=== PATIENT | male | born 1960 | race Caucasian/White ===

== ENCOUNTER 2018-10-20 09:50 | Outpatient (CLI) | payer BC ==
[2018-10-20 10:40] LABS: TOTAL HEMOGLOBIN 15.7 G/dl (14.0-18.0)
== END 2018-10-20 23:59 | disposition home or self-care (01) ==
LOC: RT 09:50
PROVIDERS: ATTEND Internal Medicine Pulmonary Disease
DX: J44.9 Chronic obstructive pulmonary disease, unspecified (principal); F17.210 Nicotine dependence, cigarettes, uncomplicated
CPT/HCPCS: 85018; 94010; 94727; 94729

== ENCOUNTER 2019-06-17 06:12 | Day surgery (SDC) | payer BC ==
[2019-06-17] VITALS (19 sets, daily range): BP systolic 107–136; BP diastolic 67–87
[~2019-06-17] VITALS: Ht 182.9 cm; Wt 84.7 kg
[2019-06-17] MEDS ORDERED: morphine 10mg/ml inj. IM ONE (06:37)
[2019-06-17] MEDS ORDERED: LIDOcaine 4% (40 mg/ml) topical solution 50ml MM ONE (06:40)
[2019-06-17] MEDS ORDERED: phenylephrine 1% (X-tra strg) 15ml nasal spray NS ONE (06:40)
[2019-06-17] MEDS ORDERED: LIDOcaine 4% (40 mg/ml) topical solution 50ml INH ONE (06:40)
[2019-06-17] MEDS ORDERED: CYAN-51 PO (06:47)
[2019-06-17] MEDS ORDERED: PRAS1TAB4 PO (06:47)
[2019-06-17] MEDS ORDERED: GINK60TA2 PO (06:47)
[2019-06-17] MEDS ORDERED: CHOL2000 PO (06:47)
[2019-06-17] MEDS ORDERED: MULT-269 PO (06:47)
[2019-06-17] MEDS ORDERED: [UNRECOGNIZED DRUG - OTHER] PO (06:47)
[2019-06-17] MEDS ORDERED: RED1000P PO (06:47)
[2019-06-17] MEDS ORDERED: lidocaine 2% viscous 15 ML cup ***bronch room only MM ONE (06:56)
[2019-06-17] MEDS ORDERED: phenylephrine 1% Nasal spray (extra-strength) 15 ML bottle **bronch room NS ONE (06:56)
[2019-06-17] MEDS ORDERED: LIDOCAINE 4% (40MG/ML) topical solution 50ml **BRONCH ONLY ONE (06:56)
[2019-06-17 07:19] LABS: BASOPHILS # (AUTO) 0.1 X10'3 (0-0.2); EOSINOPHILS # (AUTO) 0.1 X10'3 (0-0.9); EOSINOPHILS % (AUTO) 2.3 % (0-6); HEMATOCRIT 43.5 % (42.0-52.0); HEMOGLOBIN 14.9 g/dl (14.0-17.9); LYMPHOCYTES # (AUTO) 1.5 X10'3 (1.1-4.8); LYMPHOCYTES % (AUTO) 25.1 % (21-51); MEAN CORPUSCULAR HEMOGLOBIN 31.4 PG (27.0-31.0); MEAN CORPUSCULAR HGB CONC 34.3 g/dL (33.0-36.5); MEAN CORPUSCULAR VOLUME 91.4 FL (78-98); MEAN PLATELET VOLUME 7.2 FL (7.4-10.4); MONOCYTES # (AUTO) 0.5 X10'3 (0-0.9); MONOCYTES % (AUTO) 8.3 % (2-12); NEUTROPHILS # (AUTO) 3.7 X10'3 (1.8-7.7); NEUTROPHILS % (AUTO) 63.3 % (42-75); PLATELET COUNT 349 X10'3 (140-440); RED BLOOD COUNT 4.76 X10'6 (4.70-6.10); RED CELL DISTRIBUTION WIDTH 13.1 % (11.5-14.5); WHITE BLOOD COUNT 5.9 X10'3 (4.5-11.0)
[2019-06-17] MEDS ORDERED: midazolam 2 mg/2 ml injection ONE (07:34)
[2019-06-17] MEDS ORDERED: midazolam 2 mg/2 ml injection IV ONE (07:35)
== END 2019-06-17 10:35 | disposition home or self-care (01) ==
LOC: SSTAY O 06:12
PROVIDERS: ATTEND Internal Medicine Pulmonary Disease
DX: D49.1 Neoplasm of unspecified behavior of respiratory system (principal); R91.8 Other nonspecific abnormal finding of lung field; Z87.891 Personal history of nicotine dependence; E78.5 Hyperlipidemia, unspecified; F32.9 Major depressive disorder, single episode, unspecified; Z88.0 Allergy status to penicillin
CPT/HCPCS: 31628; 36415; 76499; 82378; 85025; 85651; 94640; 94760; J2250; J2270; 31622

== ENCOUNTER 2019-07-14 06:09 | Day surgery (SDC) | payer BC ==
[~2019-07-14] VITALS: Ht 182.9 cm; Wt 85.8 kg
[2019-07-14] VITALS (17 sets, daily range): BP systolic 102–151; BP diastolic 57–79
[~2019-07-14 06:09] MED LIST: CHOL2000 PO; CYAN-51 PO; GINK60TA2 PO; MULT-269 PO; PRAS1TAB4 PO; RED1000P PO; [UNRECOGNIZED DRUG - OTHER] PO
[2019-07-14] MEDS ORDERED: normal saline 1000ml 1,000 ML IV PRN (06:45)
[2019-07-14 08:00] LABS: BASOPHILS % (AUTO) 0.7 % (0-1); EOSINOPHILS # (AUTO) 0.2 X10'3 (0-0.9); EOSINOPHILS % (AUTO) 2.8 % (0-6); HEMATOCRIT 43.7 % (42.0-52.0); HEMOGLOBIN 14.8 g/dl (14.0-17.9); LYMPHOCYTES # (AUTO) 1.3 X10'3 (1.1-4.8); LYMPHOCYTES % (AUTO) 21.7 % (21-51); MEAN CORPUSCULAR HEMOGLOBIN 31.1 PG (27.0-31.0); MEAN CORPUSCULAR VOLUME 91.4 FL (78-98); MEAN PLATELET VOLUME 7.7 FL (7.4-10.4); MONOCYTES # (AUTO) 0.5 X10'3 (0-0.9); MONOCYTES % (AUTO) 8.8 % (2-12); NEUTROPHILS # (AUTO) 3.8 X10'3 (1.8-7.7); PLATELET COUNT 243 X10'3 (140-440); RED BLOOD COUNT 4.77 X10'6 (4.70-6.10); RED CELL DISTRIBUTION WIDTH 13.2 % (11.5-14.5); WHITE BLOOD COUNT 5.8 X10'3 (4.5-11.0)
[2019-07-14 08:09] LABS: ANION GAP 9 (8-16); BLOOD UREA NITROGEN 22 MG/DL (7-18); BUN/CREATININE RATIO 20.4 (5.4-32.0); CALCIUM 8.8 MG/DL (8.5-10.1); CHLORIDE 109 MMOL/L (99-107); CREATININE 1.08 MG/DL (0.60-1.10); GLUCOSE 92 MG/DL (70-104); POTASSIUM 4.5 MMOL/L (3.5-5.1); SODIUM 143 MMOL/L (135-145); TOTAL CARBON DIOXIDE 25.4 MMOL/L (24-32); eGFR 70 ML/MIN
[2019-07-14] MEDS ORDERED: LIDOcaine 1% (10mg/ml) 2ml vial SQ ONE (08:10)
[2019-07-14] MEDS ORDERED: midazolam 2 mg/2 ml injection IV PRN (08:10)
[2019-07-14] MEDS ORDERED: fentaNYL/PF 50MCG/1 ML 2ML syringe IV PRN (08:10)
[2019-07-14] MEDS ORDERED: fentaNYL/PF 50MCG/1 ML 2ML syringe ONE (08:11)
[2019-07-14] MEDS ORDERED: midazolam 2 mg/2 ml injection ONE (08:11)
[2019-07-14] MEDS ORDERED: HYDROcodone/acetaminophen 5mg/325mg tablet PO PRN (09:00)
== END 2019-07-14 11:40 | disposition home or self-care (01) ==
LOC: SSTAY O 06:09
PROVIDERS: ATTEND Radiology Diagnostic Radiology
DX: C34.32 Malignant neoplasm of lower lobe, left bronchus or lung (principal); Z79.01 Long term (current) use of anticoagulants
CPT/HCPCS: 32405; 36415; 71045; 77012; 80048; 85025; 85610; 99152; 99153; C2613; J2250; J3010; J7030

== ENCOUNTER 2021-09-21 04:49 | Inpatient (IN) | payer BC ==
[~2021-09-21] VITALS: Ht 180.3 cm; Wt 78.3 kg
[2021-09-21] VITALS (14 sets, daily range): BP systolic 78–119; BP diastolic 36–65
[~2021-09-21 04:49] MED LIST changes: -CHOL2000 PO; -CYAN-51 PO; -GINK60TA2 PO; -MULT-269 PO; -PRAS1TAB4 PO; -RED1000P PO
[2021-09-21 05:28] LABS: ABG BASE EXCESS -5.3 mmol/L (-2.0-2.0); ABG HCO3 18.7 mmol/L (22.0-26.0); ABG OXYGEN SATURATION 94.1 % (94-97); ABG PCO2 (T) 31.6 mmHg (35.0-48.0); ABG PO2 (T) 74.2 mmHg (75.0-100.0); FCOHb 0.3 % (0.0-3.9); FLOW 4 L/min; FMetHb 0.1 % (0.0-1.5); FO2Hb 93.7 % (94-97); TOTAL HEMOGLOBIN 11.3 G/dl (14.0-18.0)
--- NOTE | 2021-09-21 05:30 | NUR ---
Pt presents to the ED for a possible OD of lithium. Pt appears to be sleeping at the moment, able to maintain his own airway, sating at 100% on 6L of via NC. Will prepare for intubation, central line, and an art line.
--- NOTE | 2021-09-21 05:45 | NUR ---
Dr. Dover at bedside to prepare for intubation.
--- NOTE | 2021-09-21 05:49 | NUR ---
RT is at bedside
[2021-09-21] MEDS ORDERED: MIDAZolam inj 50 MG in normal saline 50ml IV soln 40 ML IV SCH (06:45)
[2021-09-21] MEDS ORDERED: fentaNYL/PF 50MCG/1 ML 2ML syringe IV PRN (06:45)
[2021-09-21] MEDS ORDERED: normal saline 1000ml 1,000 ML IV ONE (07:10)
[2021-09-21] MEDS: FENTANYL-0.9 % NACL/PF 100 ML IV SCH ×2 (07:15→20:50)
[2021-09-21] MEDS: midazolam 100mg in NS 100ml 100 ML IV SCH ×2 (07:19→20:51)
[2021-09-21 07:32] LABS: BASOPHILS % (AUTO) 0.2 % (0-1); EOSINOPHILS % (AUTO) 0.2 % (0-6); HEMOGLOBIN 11.6 g/dl (14.0-17.9); LYMPHOCYTES # (AUTO) 0.7 X10'3 (1.1-4.8); LYMPHOCYTES % (AUTO) 7.6 % (21-51); MEAN CORPUSCULAR HEMOGLOBIN 33.3 PG (27.0-31.0); MEAN CORPUSCULAR HGB CONC 35.1 g/dL (33.0-36.5); MEAN CORPUSCULAR VOLUME 94.7 FL (78-98); MEAN PLATELET VOLUME 6.7 FL (7.4-10.4); MONOCYTES # (AUTO) 1.1 X10'3 (0-0.9); MONOCYTES % (AUTO) 11.4 % (2-12); NEUTROPHILS # (AUTO) 7.6 X10'3 (1.8-7.7); NEUTROPHILS % (AUTO) 80.6 % (42-75); PLATELET COUNT 170 X10'3 (140-440); RED BLOOD COUNT 3.48 X10'6 (4.70-6.10); RED CELL DISTRIBUTION WIDTH 13.1 % (11.5-14.5); WHITE BLOOD COUNT 9.4 X10'3 (4.5-11.0)
[2021-09-21 07:48] LABS: ALANINE AMINOTRANSFERASE 26 U/L (12-78); ALBUMIN 2.6 G/DL (3.4-5.0); ALBUMIN/GLOBULIN RATIO 0.9 (1.1-1.5); ALKALINE PHOSPHATASE 54 IU/L (46-116); ANION GAP 8 (8-16); ASPARTATE AMINO TRANSFERASE 47 U/L (10-37); BILIRUBIN,TOTAL 0.5 MG/DL (0.1-1.0); BLOOD UREA NITROGEN 16 MG/DL (7-18); BUN/CREATININE RATIO 14.2 (5.4-32.0); CALCIUM 7.3 MG/DL (8.5-10.1); CHLORIDE 114 MMOL/L (99-107); CREATININE 1.13 MG/DL (0.60-1.10); GLUCOSE 122 MG/DL (70-104); POTASSIUM 4.2 MMOL/L (3.5-5.1); SODIUM 144 MMOL/L (135-145); TOTAL CARBON DIOXIDE 22.2 MMOL/L (24-32); TOTAL PROTEIN 5.5 G/DL (6.4-8.2); eGFR 66 ML/MIN
[2021-09-21 07:51] LABS: ACETAMINOPHEN < 2.0 UG/ML (10-30); ETHANOL < 0.010 GM/DL (0.0-0.010); TROPONIN I < 0.04 NG/ML (0.0-0.05)
[2021-09-21 08:31] LABS: ABG BASE EXCESS -3.2 mmol/L (-2.0-2.0); ABG HCO3 20.5 mmol/L (22.0-26.0); ABG OXYGEN SATURATION 97.2 % (94-97); ABG PCO2 (T) 33.9 mmHg (35.0-48.0); ABG PO2 (T) 111.1 mmHg (75.0-100.0); FCOHb 0.3 % (0.0-3.9); FMetHb 0.3 % (0.0-1.5); FO2Hb 96.6 % (94-97); PATIENT TEMPERATURE 38.1; RESPIRATORY RATE 16 b/min; TIDAL VOLUME 450 mL; TOTAL HEMOGLOBIN 11.9 G/dl (14.0-18.0)
[2021-09-21 09:26] LABS: CLARITY,URINE CLEAR (Clear); COLOR,URINE YELLOW (Yellow); GLUCOSE, URINE NEGATIVE (Neg); KETONES,URINE NEGATIVE (Neg); LEUKOCYTE ESTERASE ,URINE NEGATIVE (Neg); NITRITES, URINE NEGATIVE (Neg); OCCULT BLOOD,URINE LARGE (Neg); PROTEIN,URINE NEGATIVE (Neg); UA COLLECTION TYPE NON-SPECIFIED; UROBILINOGEN,URINE 0.2 E.U/dL (0.2-1.0)
[2021-09-21 09:30] LABS: BACTERIA,URINE NONE SEEN /HPF (Neg); MUCUS STRANDS NONE SEEN /LPF (Neg); RBC,URINE 0-2 /HPF (0-2); SQUAMOUS EPITHELIAL CELL,UR NONE SEEN /LPF (FEW); URINE AMPHETAMINE SCREEN NEGATIVE (Neg); URINE BARBITUATE SCREEN NEGATIVE (Neg); URINE BENZODIAZEPINES SCREEN POSITIVE (Neg); URINE CANNABINOID SCREEN NEGATIVE (Neg); URINE COCAINE SCREEN NEGATIVE (Neg); URINE METHADONE SCREEN NEGATIVE (Neg); URINE OPIATE SCREEN NEGATIVE (Neg); URINE PHENCYCLIDINE SCREEN NEGATIVE (Neg); WBC,URINE 0-4 /HPF (0-4)
[2021-09-21 11:23] LABS: LACTIC SEPSIS 0.9 MMOL/L (0.4-2.0)
[2021-09-21] MEDS ORDERED: magnesium 2GM in 50ml NS 50 ML IV PRN (11:55)
[2021-09-21] MEDS ORDERED: magnesium Cl slow-release 64mg tablet PO PRN (11:55)
[2021-09-21] MEDS ORDERED: magnesium hydroxide 30ml (MOM) UD suspension PO PRN (11:55)
[2021-09-21] MEDS ORDERED: Neutra Phos packet PO PRN (11:55)
[2021-09-21] MEDS ORDERED: potassium Cl 20 mEq SR tablet PO PRN ×2 (11:55)
[2021-09-21] MEDS: K, MAG and/or Phos replacement - Verify level? MC SCH (11:55)
[2021-09-21] MEDS ORDERED: potassium phosphate inj 30 MMOL in dextrose 5%-water 250 ML IV PRN (11:55)
[2021-09-21] MEDS ORDERED: potassium phosphate inj 15 MMOL in dextrose 5%-water 250 ML IV PRN (11:55)
[2021-09-21] MEDS ORDERED: magnesium 4gm in 100ml NS 100 ML IV PRN (11:55)
--- NOTE | 2021-09-21 12:28 | NUR ---
radiology manager at bedside.family at bedside.
--- NOTE | 2021-09-21 12:28 | NUR ---
TOOK OVER PATIENT ASSIGNMENT.
--- NOTE | 2021-09-21 12:28 | NUR ---
pt on versed 1mg and fentanyl 25mg/hr.
--- NOTE | 2021-09-21 13:05 | NUR ---
REPORT CALLED TO DAI TRAFFIC SIGNAL REPAIRER.
[2021-09-21] MEDS ORDERED: NORepinephrine 8mg/ 250ml NS 250 ML IV ONE (13:32)
[2021-09-21] MEDS: NORepinephrine 8mg/ 250ml NS 250 ML IV SCH (14:15)
[2021-09-21] MEDS ORDERED: BREX1TAB PO (14:34)
[2021-09-21] MEDS ORDERED: FLUO40CA PO (14:34)
[2021-09-21] MEDS ORDERED: TRAZ-251 PO (14:34)
[2021-09-21] MEDS ORDERED: LITH150C8 PO (14:34)
[2021-09-21] MEDS: normal saline 1000ml 1,000 ML IV SCH (14:49)
[2021-09-21] MEDS: albumin (Human) 5% 250ml 250 ML IV SCH ×4 (14:50→17:49)
[2021-09-21] MEDS: vancomycin/NS 1 GM ADD-VANTAGE 250 ML IV SCH (15:09)
[2021-09-21] MEDS: piperacillin/tazo 3.375gm/50ml 50 ML IV SCH ×2 (15:09→20:23)
[2021-09-21] MEDS: heparin, porcine 5000 units/ml vial SQ SCH (16:44)
[2021-09-21 16:51] LABS: ABG BASE EXCESS -4.2 mmol/L (-2.0-2.0); ABG HCO3 19.4 mmol/L (22.0-26.0); ABG OXYGEN SATURATION 94.5 % (94-97); ABG PCO2 (T) 31.8 mmHg (35.0-48.0); ABG PO2 (T) 77.2 mmHg (75.0-100.0); FCOHb 0.2 % (0.0-3.9); FMetHb 0.3 % (0.0-1.5); PATIENT TEMPERATURE 38.1; PEEP 5 cm H2O; RESPIRATORY RATE 16 b/min; TIDAL VOLUME 450 mL; TOTAL HEMOGLOBIN 10.3 G/dl (14.0-18.0)
[2021-09-21] MEDS: acetaminophen 325mg tablet PO PRN (17:49)
[2021-09-21] MEDS: docusate sod 100mg capsule PO SCH (20:00)
[2021-09-22] VITALS (22 sets, daily range): BP systolic 100–128; BP diastolic 47–75
[2021-09-22] MEDS: heparin, porcine 5000 units/ml vial SQ SCH ×3 (00:31→16:03)
[2021-09-22] MEDS: vancomycin/NS 1 GM ADD-VANTAGE 250 ML IV SCH ×2 (00:32→13:00)
[2021-09-22] MEDS: normal saline 1000ml 1,000 ML IV SCH ×2 (00:32→14:35)
[2021-09-22] MEDS: acetaminophen 325mg tablet PO PRN ×2 (01:40→20:57)
[2021-09-22] MEDS: midazolam 100mg in NS 100ml 100 ML IV SCH ×2 (01:44→17:58)
[2021-09-22] MEDS: FENTANYL-0.9 % NACL/PF 100 ML IV SCH ×2 (01:44→17:16)
[2021-09-22 02:54] LABS: BASOPHILS % (AUTO) 0.2 % (0-1); EOSINOPHILS # (AUTO) 0.1 X10'3 (0-0.9); EOSINOPHILS % (AUTO) 1.4 % (0-6); HEMATOCRIT 29.5 % (42.0-52.0); HEMOGLOBIN 10.2 g/dl (14.0-17.9); LYMPHOCYTES # (AUTO) 0.7 X10'3 (1.1-4.8); LYMPHOCYTES % (AUTO) 7.8 % (21-51); MEAN CORPUSCULAR HEMOGLOBIN 32.9 PG (27.0-31.0); MEAN CORPUSCULAR HGB CONC 34.7 g/dL (33.0-36.5); MEAN PLATELET VOLUME 6.9 FL (7.4-10.4); MONOCYTES # (AUTO) 0.9 X10'3 (0-0.9); MONOCYTES % (AUTO) 10.7 % (2-12); NEUTROPHILS % (AUTO) 79.9 % (42-75); PLATELET COUNT 142 X10'3 (140-440); RED BLOOD COUNT 3.11 X10'6 (4.70-6.10); RED CELL DISTRIBUTION WIDTH 13.1 % (11.5-14.5); WHITE BLOOD COUNT 8.8 X10'3 (4.5-11.0)
[2021-09-22 03:08] LABS: PARTIAL THROMBOPLASTIN TIME 36 SECONDS (22-32)
[2021-09-22 03:16] LABS: ALANINE AMINOTRANSFERASE 30 U/L (12-78); ALBUMIN 2.6 G/DL (3.4-5.0); ALBUMIN/GLOBULIN RATIO 0.9 (1.1-1.5); ALKALINE PHOSPHATASE 45 IU/L (46-116); ANION GAP 8 (8-16); ASPARTATE AMINO TRANSFERASE 89 U/L (10-37); BLOOD UREA NITROGEN 14 MG/DL (7-18); BUN/CREATININE RATIO 12.5 (5.4-32.0); CALCIUM 7.2 MG/DL (8.5-10.1); CHLORIDE 112 MMOL/L (99-107); CREATININE 1.12 MG/DL (0.60-1.10); GLUCOSE 104 MG/DL (70-104); MAGNESIUM 1.8 MG/DL (1.5-2.4); PHOSPHORUS 1.9 MG/DL (2.3-4.5); POTASSIUM 3.6 MMOL/L (3.5-5.1); SODIUM 144 MMOL/L (135-145); TOTAL CARBON DIOXIDE 23.7 MMOL/L (24-32); TOTAL PROTEIN 5.5 G/DL (6.4-8.2); eGFR 67 ML/MIN
[2021-09-22 03:22] LABS: ABG BASE EXCESS -3.8 mmol/L (-2.0-2.0); ABG HCO3 22.4 mmol/L (22.0-26.0); ABG OXYGEN SATURATION 87.5 % (94-97); ABG PCO2 (T) 48.2 mmHg (35.0-48.0); ABG PO2 (T) 63.5 mmHg (75.0-100.0); FCOHb 0.3 % (0.0-3.9); FMetHb 0.2 % (0.0-1.5); FO2Hb 87.1 % (94-97); PATIENT TEMPERATURE 38.5; PEEP 5 cm H2O; RESPIRATORY RATE 12 b/min; TIDAL VOLUME 450 mL; TOTAL HEMOGLOBIN 10.7 G/dl (14.0-18.0)
[2021-09-22] MEDS: piperacillin/tazo 3.375gm/50ml 50 ML IV SCH ×3 (03:52→20:58)
--- NOTE | 2021-09-22 04:00 | NUR ---
Dr. Ayon, rounded on patient, changes discussed with MD: High fever, oxygen desaturation. MD order for vent settings change, settings changed by RT as order. no any other order receive
[2021-09-22] MEDS: NORepinephrine 8mg/ 250ml NS 250 ML IV SCH ×2 (04:36→21:29)
--- NOTE | 2021-09-22 06:02 | NUR ---
TYLENOL TABLET GIVEN FOR HIGH FEVER, AND ICE PACKS APPLIED TO SIDE TO COOL TEMP DOWN. REPORT GIVEN TO
--- NOTE | 2021-09-22 06:31 | NUR ---
REPORT GIVEN TO DOT/JUAN
[2021-09-22 07:18] LABS: ABG BASE EXCESS -4.2 mmol/L (-2.0-2.0); ABG HCO3 21.6 mmol/L (22.0-26.0); ABG OXYGEN SATURATION 93.5 % (94-97); ABG PCO2 (T) 45.5 mmHg (35.0-48.0); ABG PO2 (T) 77.5 mmHg (75.0-100.0); FCOHb 0.3 % (0.0-3.9); FMetHb 0.4 % (0.0-1.5); FO2Hb 92.8 % (94-97); PATIENT TEMPERATURE 38.6; PEEP 8 cm H2O; RESPIRATORY RATE 14 b/min; TIDAL VOLUME 450 mL; TOTAL HEMOGLOBIN 11.1 G/dl (14.0-18.0)
[2021-09-22] MEDS: K, MAG and/or Phos replacement - Verify level? MC SCH (08:00)
[2021-09-22] MEDS: pantoprazole 40 MG vial IV SCH (08:24)
[2021-09-22] MEDS: docusate sod 100mg capsule PO SCH ×2 (08:25→20:57)
--- NOTE | 2021-09-22 09:09 | NUR ---
Initial: Pt admitted to previous facility for OD, became unstable during transfer, now intubated and sedated per MD note. Pt may benefit from TF if prolonged intubation, see recs below. LBM unknown, receiving routine colace. No open wounds or edema noted. Will continue to monitor closely. Recs: 1) IF prolonged intubation, Continuous TF using Vital AF at 75ml/hr goal to provide 1800ml volume, 2160kcals, 135g Protein, 1458ml free water 2) IF TF, Additional water flush 200ml Q4H 3) IF TF, PALB Q /; daily wts 4) Routine bowel care 5) Upon extubation, advance to Regular diet as medically indicated Addendum: 09/22/21 at [address] Amended: Links added.
[2021-09-22] MEDS: ipratropium/albuterol 3ml nebule NEB PRN (11:28)
[2021-09-22] MEDS ORDERED: albumin (Human) 5% 250ml 250 ML IV ONE ×4 (14:00)
--- NOTE | 2021-09-22 18:30 | NUR ---
I have recd report and assumed care of pt, pt resting in bed spouse at bedside, questions answered, plan of care reviewed
--- NOTE | 2021-09-22 19:20 | NUR ---
Assessment complete, titrating Levophed to keep MAP greater then 60.
[2021-09-23] VITALS (24 sets, daily range): BP systolic 92–112; BP diastolic 48–88
--- NOTE | 2021-09-23 00:05 | NUR ---
poison control called updated on pts condition labs and vs reviewed.
[2021-09-23] MEDS ORDERED: VANCOMYCIN LEVEL IV ONE ×2 (00:30→12:30)
[2021-09-23] MEDS: heparin, porcine 5000 units/ml vial SQ SCH ×3 (01:02→19:40)
[2021-09-23] MEDS: vancomycin/NS 1 GM ADD-VANTAGE 250 ML IV SCH ×2 (01:02→13:47)
[2021-09-23] MEDS: FENTANYL-0.9 % NACL/PF 100 ML IV SCH (03:13)
[2021-09-23 03:17] LABS: BASOPHILS % (AUTO) 0.2 % (0-1); EOSINOPHILS # (AUTO) 0.1 X10'3 (0-0.9); EOSINOPHILS % (AUTO) 1.4 % (0-6); HEMATOCRIT 25.9 % (42.0-52.0); HEMOGLOBIN 9.1 g/dl (14.0-17.9); LYMPHOCYTES # (AUTO) 0.5 X10'3 (1.1-4.8); LYMPHOCYTES % (AUTO) 7.2 % (21-51); MEAN CORPUSCULAR HEMOGLOBIN 33.2 PG (27.0-31.0); MEAN CORPUSCULAR HGB CONC 35.3 g/dL (33.0-36.5); MEAN CORPUSCULAR VOLUME 94.2 FL (78-98); MONOCYTES # (AUTO) 0.7 X10'3 (0-0.9); MONOCYTES % (AUTO) 9.7 % (2-12); NEUTROPHILS % (AUTO) 81.5 % (42-75); PLATELET COUNT 115 X10'3 (140-440); RED BLOOD COUNT 2.75 X10'6 (4.70-6.10); RED CELL DISTRIBUTION WIDTH 12.7 % (11.5-14.5); WHITE BLOOD COUNT 7.4 X10'3 (4.5-11.0)
[2021-09-23 03:34] LABS: ALANINE AMINOTRANSFERASE 30 U/L (12-78); ALBUMIN 2.8 G/DL (3.4-5.0); ALKALINE PHOSPHATASE 49 IU/L (46-116); ANION GAP 11 (8-16); ASPARTATE AMINO TRANSFERASE 71 U/L (10-37); BLOOD UREA NITROGEN 16 MG/DL (7-18); BUN/CREATININE RATIO 14.5 (5.4-32.0); CALCIUM 7.5 MG/DL (8.5-10.1); CHLORIDE 111 MMOL/L (99-107); GLUCOSE 86 MG/DL (70-104); MAGNESIUM 1.8 MG/DL (1.5-2.4); PHOSPHORUS 2.9 MG/DL (2.3-4.5); POTASSIUM 3.9 MMOL/L (3.5-5.1); SODIUM 144 MMOL/L (135-145); TOTAL CARBON DIOXIDE 22.4 MMOL/L (24-32); TOTAL PROTEIN 5.6 G/DL (6.4-8.2); eGFR 68 ML/MIN
[2021-09-23 03:35] LABS: PARTIAL THROMBOPLASTIN TIME 38 SECONDS (22-32)
[2021-09-23 03:36] LABS: VANCOMYCIN,TROUGH 27.8 UG/ML (6.0-14.0)
[2021-09-23] MEDS: acetaminophen 325mg tablet PO PRN (04:00)
[2021-09-23] MEDS: piperacillin/tazo 3.375gm/50ml 50 ML IV SCH ×3 (04:00→19:39)
[2021-09-23] MEDS: normal saline 1000ml 1,000 ML IV SCH ×2 (04:00→17:15)
[2021-09-23 04:21] LABS: ABG BASE EXCESS -4.2 mmol/L (-2.0-2.0); ABG HCO3 21.3 mmol/L (22.0-26.0); ABG OXYGEN SATURATION 94.6 % (94-97); ABG PO2 (T) 82.4 mmHg (75.0-100.0); FCOHb 0.3 % (0.0-3.9); FMetHb 0.3 % (0.0-1.5); PATIENT TEMPERATURE 38.6; PEEP 8 cm H2O; RESPIRATORY RATE 14 b/min; TIDAL VOLUME 450 mL; TOTAL HEMOGLOBIN 9.5 G/dl (14.0-18.0)
[2021-09-23] MEDS ORDERED: ibuprofen tablet 400 MG TABLET PO PRN (05:00)
[2021-09-23 05:39] LABS: CREATINE KINASE 2031 U/L (39-308)
--- NOTE | 2021-09-23 06:24 | NUR ---
report given to rec rn plan of care reviewed
[2021-09-23] MEDS ORDERED: docusate sodium 100mg/10ml UD cup PO SCH (07:29)
[2021-09-23] MEDS: K, MAG and/or Phos replacement - Verify level? MC SCH (08:00)
[2021-09-23] MEDS: pantoprazole 40 MG vial IV SCH (08:09)
--- NOTE | 2021-09-23 11:14 | NUR ---
TF Consult: See recs below. Initial: Pt admitted to previous facility for OD, became unstable during transfer, now intubated and sedated per MD note. Pt may benefit from TF if prolonged intubation, see recs below. LBM unknown, receiving routine colace. No open wounds or edema noted. Will continue to monitor closely. Recs: 1) Continuous TF using Vital AF at 75ml/hr goal to provide 1800ml volume, 2160kcals, 135g Protein, 1458ml free water 2) Additional water flush 200ml Q4H 3) PALB Q /; daily wts 4) Routine bowel care 5) Upon extubation, advance to Regular diet as medically indicated Addendum: 09/23/21 at [address] Amended: Links added.
[2021-09-23] MEDS: NORepinephrine 8mg/ 250ml NS 250 ML IV SCH (13:21)
[2021-09-23 13:58] LABS: PREALBUMIN 10.4 MG/DL (19-36); VANCOMYCIN,TROUGH 8.1 UG/ML (6.0-14.0)
[2021-09-23] MEDS ORDERED: dextrose 50%-water 50ml dispensing syringe IV ONE (14:45)
[2021-09-23] MEDS: morphine/NS 100mg/100ml bag 100 ML IV SCH (15:00)
[2021-09-23] MEDS ORDERED: potassium Cl 20 mEq SR tablet OGT PRN ×2 (15:43)
[2021-09-23] MEDS ORDERED: Neutra Phos packet OGT PRN (15:43)
[2021-09-23] MEDS ORDERED: magnesium hydroxide 30ml (MOM) UD suspension OGT PRN (15:43)
[2021-09-23] MEDS ORDERED: ibuprofen 100 MG/5 ML oral susp OGT PRN (15:45)
[2021-09-23] MEDS ORDERED: ibuprofen 100 MG/5 ML oral susp PO PRN (15:45)
--- NOTE | 2021-09-23 18:20 | NUR ---
Problems reprioritized. Patient report given, questions answered & plan of care reviewed with JUAN Álvarez.
--- NOTE | 2021-09-23 18:30 | NUR ---
Patient in room ICU 2042. I have received report from Johnathan MARTINEZ and had the opportunity to ask questions and assume patient care.
[2021-09-23] MEDS: acetaminophen 325mg/10.15ml oral unit dose solution OGT PRN (19:18)
[2021-09-23] MEDS: docusate sodium 100mg/10ml UD cup OGT SCH (19:39)
[2021-09-23] MEDS: lactobacillus rhamnosus 10,000 MMU CELLS/CAPSULE OGT SCH (19:40)
[2021-09-24] VITALS (23 sets, daily range): BP systolic 93–131; BP diastolic 50–72
[2021-09-24] MEDS: VANCOmycin 1250MG/NS 250ml Bag 250 ML IV SCH ×2 (01:14→14:12)
[2021-09-24 03:12] LABS: ABG BASE EXCESS -5.3 mmol/L (-2.0-2.0); ABG HCO3 19.6 mmol/L (22.0-26.0); ABG OXYGEN SATURATION 96.4 % (94-97); ABG PCO2 (T) 35.7 mmHg (35.0-48.0); ABG PO2 (T) 88.5 mmHg (75.0-100.0); FCOHb 0.2 % (0.0-3.9); FMetHb 0.3 % (0.0-1.5); FO2Hb 95.9 % (94-97); PEEP 8 cm H2O; RESPIRATORY RATE 14 b/min; TIDAL VOLUME 450 mL; TOTAL HEMOGLOBIN 9.2 G/dl (14.0-18.0)
[2021-09-24 03:38] LABS: BASOPHILS % (AUTO) 0.2 % (0-1); EOSINOPHILS # (AUTO) 0.1 X10'3 (0-0.9); EOSINOPHILS % (AUTO) 1.5 % (0-6); HEMATOCRIT 24.4 % (42.0-52.0); HEMOGLOBIN 8.5 g/dl (14.0-17.9); LYMPHOCYTES # (AUTO) 0.5 X10'3 (1.1-4.8); LYMPHOCYTES % (AUTO) 6.6 % (21-51); MEAN CORPUSCULAR HEMOGLOBIN 32.9 PG (27.0-31.0); MEAN CORPUSCULAR HGB CONC 34.9 g/dL (33.0-36.5); MEAN CORPUSCULAR VOLUME 94.2 FL (78-98); MEAN PLATELET VOLUME 7.1 FL (7.4-10.4); MONOCYTES # (AUTO) 0.9 X10'3 (0-0.9); MONOCYTES % (AUTO) 10.9 % (2-12); NEUTROPHILS # (AUTO) 6.7 X10'3 (1.8-7.7); NEUTROPHILS % (AUTO) 80.8 % (42-75); PLATELET COUNT 114 X10'3 (140-440); RED BLOOD COUNT 2.59 X10'6 (4.70-6.10); RED CELL DISTRIBUTION WIDTH 12.9 % (11.5-14.5); WHITE BLOOD COUNT 8.2 X10'3 (4.5-11.0)
[2021-09-24 03:51] LABS: PARTIAL THROMBOPLASTIN TIME 51 SECONDS (22-32)
[2021-09-24 03:52] LABS: ALANINE AMINOTRANSFERASE 34 U/L (12-78); ALBUMIN 2.1 G/DL (3.4-5.0); ALBUMIN/GLOBULIN RATIO 0.7 (1.1-1.5); ALKALINE PHOSPHATASE 63 IU/L (46-116); ANION GAP 9 (8-16); ASPARTATE AMINO TRANSFERASE 57 U/L (10-37); BLOOD UREA NITROGEN 13 MG/DL (7-18); BUN/CREATININE RATIO 13.1 (5.4-32.0); CALCIUM 7.2 MG/DL (8.5-10.1); CHLORIDE 110 MMOL/L (99-107); CREATININE 0.99 MG/DL (0.60-1.10); GLUCOSE 118 MG/DL (70-104); POTASSIUM 3.5 MMOL/L (3.5-5.1); SODIUM 142 MMOL/L (135-145); TOTAL CARBON DIOXIDE 23.2 MMOL/L (24-32); TOTAL PROTEIN 5.1 G/DL (6.4-8.2); eGFR 77 ML/MIN
[2021-09-24] MEDS: piperacillin/tazo 3.375gm/50ml 50 ML IV SCH ×3 (03:52→20:20)
[2021-09-24] MEDS: midazolam 100mg in NS 100ml 100 ML IV SCH (04:19)
[2021-09-24] MEDS: acetaminophen 325mg/10.15ml oral unit dose solution OGT PRN (06:02)
--- NOTE | 2021-09-24 06:41 | NUR ---
Problems reprioritized. Patient report given, questions answered & plan of care reviewed with Johnathan MARTINEZ.
[2021-09-24] MEDS: K, MAG and/or Phos replacement - Verify level? MC SCH (08:00)
[2021-09-24] MEDS: pantoprazole 40 MG vial IV SCH (08:50)
[2021-09-24] MEDS: lactobacillus rhamnosus 10,000 MMU CELLS/CAPSULE OGT SCH ×2 (08:50→20:21)
[2021-09-24] MEDS: docusate sodium 100mg/10ml UD cup OGT SCH (08:50)
[2021-09-24] MEDS: heparin, porcine 5000 units/ml vial SQ SCH ×2 (08:51→20:20)
[2021-09-24] MEDS ORDERED: potassium Cl 20 mEq/100mL bag IV ONE (15:30)
[2021-09-24] MEDS ORDERED: potassium Cl 10 mEq/100mL bag IV ONE ×2 (15:35)
--- NOTE | 2021-09-24 18:14 | NUR ---
Problems reprioritized. Patient report given, questions answered & plan of care reviewed with JUAN Álvarez.
--- NOTE | 2021-09-24 18:30 | NUR ---
Patient in room ICU 2042. I have received report from Johnathan MARTINEZ and had the opportunity to ask questions and assume patient care.
[2021-09-24] MEDS: normal saline 1000ml 1,000 ML IV SCH (19:55)
[2021-09-24] MEDS: NORepinephrine 8mg/ 250ml NS 250 ML IV SCH (21:05)
[2021-09-24] MEDS ORDERED: docusate sodium 100mg/10ml UD cup OGT ONE (22:15)
[2021-09-25] VITALS (24 sets, daily range): BP systolic 90–116; BP diastolic 49–70
[2021-09-25] MEDS: VANCOmycin 1250MG/NS 250ml Bag 250 ML IV SCH ×2 (01:06→13:42)
[2021-09-25] MEDS: NORepinephrine 8mg/ 250ml NS 250 ML IV SCH ×2 (01:07→12:57)
[2021-09-25] MEDS: normal saline 1000ml 1,000 ML IV SCH ×3 (01:08→12:46)
[2021-09-25 03:22] LABS: BASOPHILS % (AUTO) 0.2 % (0-1); EOSINOPHILS # (AUTO) 0.1 X10'3 (0-0.9); EOSINOPHILS % (AUTO) 1.8 % (0-6); HEMATOCRIT 25.7 % (42.0-52.0); HEMOGLOBIN 9.1 g/dl (14.0-17.9); LYMPHOCYTES # (AUTO) 0.4 X10'3 (1.1-4.8); LYMPHOCYTES % (AUTO) 5.3 % (21-51); MEAN CORPUSCULAR HEMOGLOBIN 32.9 PG (27.0-31.0); MEAN CORPUSCULAR HGB CONC 35.3 g/dL (33.0-36.5); MEAN CORPUSCULAR VOLUME 93.2 FL (78-98); MEAN PLATELET VOLUME 7.7 FL (7.4-10.4); MONOCYTES # (AUTO) 0.4 X10'3 (0-0.9); MONOCYTES % (AUTO) 5.9 % (2-12); NEUTROPHILS # (AUTO) 6.4 X10'3 (1.8-7.7); NEUTROPHILS % (AUTO) 86.8 % (42-75); PLATELET COUNT 135 X10'3 (140-440); RED BLOOD COUNT 2.76 X10'6 (4.70-6.10); RED CELL DISTRIBUTION WIDTH 12.9 % (11.5-14.5); WHITE BLOOD COUNT 7.4 X10'3 (4.5-11.0)
[2021-09-25 03:25] LABS: PARTIAL THROMBOPLASTIN TIME 37 SECONDS (22-32)
[2021-09-25 03:37] LABS: ALANINE AMINOTRANSFERASE 38 U/L (12-78); ALBUMIN 1.9 G/DL (3.4-5.0); ALBUMIN/GLOBULIN RATIO 0.6 (1.1-1.5); ALKALINE PHOSPHATASE 109 IU/L (46-116); ANION GAP 6 (8-16); ASPARTATE AMINO TRANSFERASE 55 U/L (10-37); BILIRUBIN,TOTAL 0.8 MG/DL (0.1-1.0); BLOOD UREA NITROGEN 15 MG/DL (7-18); BUN/CREATININE RATIO 14.9 (5.4-32.0); CALCIUM 7.4 MG/DL (8.5-10.1); CHLORIDE 110 MMOL/L (99-107); CREATININE 1.01 MG/DL (0.60-1.10); GLUCOSE 143 MG/DL (70-104); MAGNESIUM 2.1 MG/DL (1.5-2.4); SODIUM 142 MMOL/L (135-145); TOTAL PROTEIN 5.1 G/DL (6.4-8.2); eGFR 75 ML/MIN
[2021-09-25 03:49] LABS: ABG BASE EXCESS -1.5 mmol/L (-2.0-2.0); ABG HCO3 21.4 mmol/L (22.0-26.0); ABG OXYGEN SATURATION 93.9 % (94-97); ABG PCO2 (T) 31.1 mmHg (35.0-48.0); ABG PO2 (T) 70.2 mmHg (75.0-100.0); ALLEN'S TEST POSITIVE; FCOHb 0.2 % (0.0-3.9); FMetHb 0.2 % (0.0-1.5); FO2Hb 93.5 % (94-97); PATIENT TEMPERATURE 38.3; PEEP 8 cm H2O; RESPIRATORY RATE 16 b/min; TIDAL VOLUME 450 mL; TOTAL HEMOGLOBIN 9.1 G/dl (14.0-18.0)
[2021-09-25 03:58] LABS: POTASSIUM 2.6 MMOL/L (3.5-5.1)
[2021-09-25 03:59] LABS: PHOSPHORUS 0.8 MG/DL (2.3-4.5)
[2021-09-25] MEDS: piperacillin/tazo 3.375gm/50ml 50 ML IV SCH ×3 (04:15→19:26)
[2021-09-25] MEDS ORDERED: CALCIUM GLUC 1gm/50ml NACL,iso 50 ML IV ONE (05:00)
[2021-09-25] MEDS ORDERED: POTASSIUM BICARBONATE/CIT AC 10 MEQ TABLET.EFF OGT ONE (05:00)
--- NOTE | 2021-09-25 06:28 | NUR ---
Patient in room ICU 2042. I have received report from Henri MARTINEZ and had the opportunity to ask questions and assume patient care.
--- NOTE | 2021-09-25 06:30 | NUR ---
Patient in room ICU 2042. I have received report from Henri MARTINEZ and had the opportunity to ask questions and assume patient care.
--- NOTE | 2021-09-25 06:45 | NUR ---
Problems reprioritized. Patient report given, questions answered & plan of care reviewed with Carissa MARTINEZ.
[2021-09-25] MEDS: midazolam 100mg in NS 100ml 100 ML IV SCH (06:57)
[2021-09-25] MEDS: morphine/NS 100mg/100ml bag 100 ML IV SCH (07:40)
[2021-09-25] MEDS: K, MAG and/or Phos replacement - Verify level? MC SCH (08:00)
[2021-09-25] MEDS: heparin, porcine 5000 units/ml vial SQ SCH ×2 (08:20→19:28)
[2021-09-25] MEDS: lactobacillus rhamnosus 10,000 MMU CELLS/CAPSULE OGT SCH ×2 (08:20→19:28)
[2021-09-25] MEDS: pantoprazole 40 MG vial IV SCH (08:20)
[2021-09-25] MEDS: docusate sodium 100mg/10ml UD cup OGT SCH ×2 (08:48→19:27)
[2021-09-25] MEDS: dexmedetomidin/NS 400mcg/100ml 100 ML IV SCH ×2 (11:00→14:19)
--- NOTE | 2021-09-25 11:43 | NUR ---
Reassessment: Pt receiving TF at goal of Vital AF at 75ml/hr. Pt noted w/ GRV of 312ml this morning though back to zero now. Pt also has not had documented BM though routine colace just started 09/24. No change to nutrition intervention at this time, will continue to monitor. Recs: 1) Continuous TF using Vital AF at 75ml/hr goal to provide 1800ml volume, 2160kcals, 135g Protein, 1458ml free water 2) Additional water flush 200ml Q4H 3) PALB Q /; daily wts 4) Routine bowel care 5) Upon extubation, advance to Regular diet as medically indicated Addendum: 09/25/21 at [address] Amended: Links added.
[2021-09-25] MEDS ORDERED: VANCOMYCIN LEVEL IV ONE (12:30)
[2021-09-25] MEDS: acetaminophen 325mg/10.15ml oral unit dose solution OGT PRN (17:19)
--- NOTE | 2021-09-25 17:42 | NUR ---
Sedation changed to Precedex at very low dose. With stimulation, patient vigorously coughs. Is not opening eyes or following commands. Temp increased to 38.4. Med with Tylenol. Levo remains at 0.2 mcg/kg/min to keep MAP > 65. Sputum rust colored. TF residual 500 mL. 250 mL returned.
--- NOTE | 2021-09-25 18:26 | NUR ---
Problems reprioritized. Patient report given, questions answered & plan of care reviewed with Henri MARTINEZ.
--- NOTE | 2021-09-25 18:30 | NUR ---
Patient in room ICU 2042. I have received report from Carissa MARTINEZ and had the opportunity to ask questions and assume patient care.
[2021-09-25 20:41] LABS: PHOSPHORUS 1.7 MG/DL (2.3-4.5)
[2021-09-25 20:48] LABS: POTASSIUM 2.9 MMOL/L (3.5-5.1)
[2021-09-25] MEDS: POTASSIUM BICARB 20meq eff tab 20 MEQ TABLET.EFF PO SCH (21:43)
[2021-09-25] MEDS ORDERED: VANCOMYCIN 1,500MG inj. 1,500 MG in normal saline 500ml IV soln 500 ML IV SCH (22:00)
[2021-09-26] VITALS (24 sets, daily range): BP systolic 102–142; BP diastolic 55–76
[2021-09-26] MEDS: dexmedetomidin/NS 400mcg/100ml 100 ML IV SCH ×7 (00:22→22:14)
--- NOTE | 2021-09-26 00:30 | NUR ---
PT became agitated, titrated Precedex up but was ineffective. PT was tachypneic with RR in high 40's, O2 sat decreased to mid 80's. Versed restarted at low dose as well as morphine at low dose. PT did settle and is now resting comfortably. Will titrate versed and morphine off as PT tolerated and will titrate Precedex accordingly and continue to monitor.
[2021-09-26] MEDS: POTASSIUM BICARB 20meq eff tab 20 MEQ TABLET.EFF PO SCH (02:13)
[2021-09-26 02:23] LABS: ABG BASE EXCESS 0.9 mmol/L (-2.0-2.0); ABG HCO3 24.3 mmol/L (22.0-26.0); ABG OXYGEN SATURATION 94.6 % (94-97); ABG PO2 (T) 76.2 mmHg (75.0-100.0); ALLEN'S TEST POSITIVE; FCOHb 0.2 % (0.0-3.9); FMetHb 0.1 % (0.0-1.5); FO2Hb 94.3 % (94-97); PATIENT TEMPERATURE 37.6; PEEP 8 cm H2O; RESPIRATORY RATE 14 b/min; TIDAL VOLUME 450 mL; TOTAL HEMOGLOBIN 9.7 G/dl (14.0-18.0)
[2021-09-26 03:11] LABS: BASOPHILS % (AUTO) 0.2 % (0-1); EOSINOPHILS # (AUTO) 0.2 X10'3 (0-0.9); EOSINOPHILS % (AUTO) 2.7 % (0-6); HEMATOCRIT 24.5 % (42.0-52.0); HEMOGLOBIN 8.7 g/dl (14.0-17.9); LYMPHOCYTES # (AUTO) 0.5 X10'3 (1.1-4.8); LYMPHOCYTES % (AUTO) 6.7 % (21-51); MEAN CORPUSCULAR HGB CONC 35.3 g/dL (33.0-36.5); MEAN CORPUSCULAR VOLUME 93.4 FL (78-98); MEAN PLATELET VOLUME 7.6 FL (7.4-10.4); MONOCYTES # (AUTO) 0.8 X10'3 (0-0.9); MONOCYTES % (AUTO) 11.3 % (2-12); NEUTROPHILS # (AUTO) 5.4 X10'3 (1.8-7.7); NEUTROPHILS % (AUTO) 79.1 % (42-75); PLATELET COUNT 156 X10'3 (140-440); RED BLOOD COUNT 2.63 X10'6 (4.70-6.10); RED CELL DISTRIBUTION WIDTH 12.9 % (11.5-14.5); WHITE BLOOD COUNT 6.8 X10'3 (4.5-11.0)
[2021-09-26 03:20] LABS: PARTIAL THROMBOPLASTIN TIME 34 SECONDS (22-32)
[2021-09-26 03:28] LABS: ALANINE AMINOTRANSFERASE 59 U/L (12-78); ALBUMIN 1.9 G/DL (3.4-5.0); ALBUMIN/GLOBULIN RATIO 0.5 (1.1-1.5); ALKALINE PHOSPHATASE 154 IU/L (46-116); ANION GAP 9 (8-16); ASPARTATE AMINO TRANSFERASE 62 U/L (10-37); BLOOD UREA NITROGEN 14 MG/DL (7-18); BUN/CREATININE RATIO 15.2 (5.4-32.0); CALCIUM 7.6 MG/DL (8.5-10.1); CHLORIDE 111 MMOL/L (99-107); CREATININE 0.92 MG/DL (0.60-1.10); GLUCOSE 129 MG/DL (70-104); MAGNESIUM 1.9 MG/DL (1.5-2.4); POTASSIUM 3.1 MMOL/L (3.5-5.1); SODIUM 145 MMOL/L (135-145); TOTAL CARBON DIOXIDE 25.3 MMOL/L (24-32); TOTAL PROTEIN 5.4 G/DL (6.4-8.2); eGFR 84 ML/MIN
[2021-09-26] MEDS: piperacillin/tazo 3.375gm/50ml 50 ML IV SCH ×3 (03:55→20:10)
[2021-09-26] MEDS: NORepinephrine 8mg/ 250ml NS 250 ML IV SCH ×2 (04:49→20:41)
--- NOTE | 2021-09-26 06:16 | NUR ---
Patient in room ICU 2042. I have received report from Henri MARTINEZ and had the opportunity to ask questions and assume patient care.
--- NOTE | 2021-09-26 06:37 | NUR ---
Problems reprioritized. Patient report given, questions answered & plan of care reviewed with Carissa MARTINEZ.
[2021-09-26 07:39] LABS: CREATINE KINASE 423 U/L (39-308)
[2021-09-26] MEDS: K, MAG and/or Phos replacement - Verify level? MC SCH (08:00)
[2021-09-26] MEDS: heparin, porcine 5000 units/ml vial SQ SCH ×2 (08:31→20:11)
[2021-09-26] MEDS: pantoprazole 40 MG vial IV SCH (08:31)
[2021-09-26] MEDS: lactobacillus rhamnosus 10,000 MMU CELLS/CAPSULE OGT SCH ×2 (08:32→20:11)
[2021-09-26] MEDS: docusate sodium 100mg/10ml UD cup OGT SCH ×2 (08:32→20:10)
[2021-09-26] MEDS: normal saline 1000ml 1,000 ML IV SCH (09:45)
[2021-09-26] MEDS ORDERED: traZODone 50mg tablet PO PRN (10:25)
[2021-09-26] MEDS ORDERED: lithium carbonate 150mg capsule PO ONE (10:40)
[2021-09-26] MEDS ORDERED: FLUoxetine 20mg capsule PO ONE (10:40)
[2021-09-26] MEDS: acetaminophen 325mg/10.15ml oral unit dose solution OGT PRN (10:41)
--- NOTE | 2021-09-26 11:00 | NUR ---
Episode of extreme agitation. Patient opening eyes and trying to sit up but does not track or follow commands. Extremities rigid with tremors. Resp rate increased so fast that ventilator could not keep up. Sats decreased to 60's. Removed from ventilator and bagged with ambu bag and 100% FiO2 until sats into 90's. Morphine and Versed gtts restarted with decrease in agitation. Home psych meds restarted.
[2021-09-26] MEDS: midazolam 100mg in NS 100ml 100 ML IV SCH ×2 (11:28→13:33)
--- NOTE | 2021-09-26 13:51 | NUR ---
F/u 09/26: Due to national shortage of Vital AF and Vital High Protein, if substitution necessary, recommend Pivot 1.5, see recs below for if substitution. Recs: 1) Continuous TF using Vital AF at 75ml/hr goal to provide 1800ml volume, 2160kcals, 135g Protein, 1458ml free water 2) Additional water flush 200ml Q4H 3) IF out of Vital AF sub Pivot 1.5 at 60ml/hr providing 1440ml volume, 2160kcals, 135g protein, 1094ml free water. Additional 250ml water flush Q4H 4) PALB Q /; daily wts 5) Routine bowel care 6) Upon extubation, advance to Regular diet as medically indicated Addendum: 09/26/21 at [address] Amended: Links added.
[2021-09-26] MEDS: morphine/NS 100mg/100ml bag 100 ML IV SCH (16:42)
--- NOTE | 2021-09-26 18:21 | NUR ---
Problems reprioritized. Patient report given, questions answered & plan of care reviewed with Mac RN.
--- NOTE | 2021-09-26 19:45 | NUR ---
Communication -Called Dr. Mclean regarding new rash on abdomen. No new orders
[2021-09-26] MEDS: lithium carbonate 150mg capsule PO SCH (20:11)
[2021-09-26] MEDS: FLUoxetine 20mg capsule PO SCH (20:11)
[2021-09-27] VITALS (25 sets, daily range): BP systolic 87–123; BP diastolic 45–65
[2021-09-27] MEDS: dexmedetomidin/NS 400mcg/100ml 100 ML IV SCH ×6 (02:14→21:28)
[2021-09-27 02:50] LABS: ABG BASE EXCESS 0.2 mmol/L (-2.0-2.0); ABG HCO3 23.6 mmol/L (22.0-26.0); ABG OXYGEN SATURATION 89.8 % (94-97); ABG PCO2 (T) 35.6 mmHg (35.0-48.0); ABG PO2 (T) 60.7 mmHg (75.0-100.0); ALLEN'S TEST POSITIVE; FCOHb 0.3 % (0.0-3.9); FMetHb 0.2 % (0.0-1.5); FO2Hb 89.4 % (94-97); PATIENT TEMPERATURE 38.4; PEEP 8 cm H2O; RESPIRATORY RATE 14 b/min; TIDAL VOLUME 450 mL; TOTAL HEMOGLOBIN 9.2 G/dl (14.0-18.0)
[2021-09-27 03:06] LABS: BASOPHILS % (AUTO) 0.3 % (0-1); EOSINOPHILS # (AUTO) 0.1 X10'3 (0-0.9); EOSINOPHILS % (AUTO) 2.2 % (0-6); HEMATOCRIT 24.8 % (42.0-52.0); HEMOGLOBIN 8.6 g/dl (14.0-17.9); LYMPHOCYTES # (AUTO) 0.3 X10'3 (1.1-4.8); LYMPHOCYTES % (AUTO) 5.3 % (21-51); MEAN CORPUSCULAR HEMOGLOBIN 32.5 PG (27.0-31.0); MEAN CORPUSCULAR HGB CONC 34.8 g/dL (33.0-36.5); MEAN CORPUSCULAR VOLUME 93.5 FL (78-98); MEAN PLATELET VOLUME 7.5 FL (7.4-10.4); MONOCYTES # (AUTO) 0.7 X10'3 (0-0.9); MONOCYTES % (AUTO) 11.4 % (2-12); NEUTROPHILS # (AUTO) 5.2 X10'3 (1.8-7.7); NEUTROPHILS % (AUTO) 80.8 % (42-75); PLATELET COUNT 150 X10'3 (140-440); RED BLOOD COUNT 2.65 X10'6 (4.70-6.10); RED CELL DISTRIBUTION WIDTH 13.1 % (11.5-14.5); WHITE BLOOD COUNT 6.4 X10'3 (4.5-11.0)
[2021-09-27 03:14] LABS: PARTIAL THROMBOPLASTIN TIME 33 SECONDS (22-32)
[2021-09-27 03:25] LABS: ALANINE AMINOTRANSFERASE 47 U/L (12-78); ALBUMIN 1.8 G/DL (3.4-5.0); ALBUMIN/GLOBULIN RATIO 0.5 (1.1-1.5); ALKALINE PHOSPHATASE 153 IU/L (46-116); ANION GAP 7 (8-16); ASPARTATE AMINO TRANSFERASE 37 U/L (10-37); BILIRUBIN,TOTAL 0.7 MG/DL (0.1-1.0); BLOOD UREA NITROGEN 17 MG/DL (7-18); BUN/CREATININE RATIO 18.3 (5.4-32.0); CALCIUM 7.7 MG/DL (8.5-10.1); CHLORIDE 112 MMOL/L (99-107); CREATININE 0.93 MG/DL (0.60-1.10); GLUCOSE 140 MG/DL (70-104); PHOSPHORUS 1.9 MG/DL (2.3-4.5); POTASSIUM 3.3 MMOL/L (3.5-5.1); SODIUM 144 MMOL/L (135-145); TOTAL CARBON DIOXIDE 25.5 MMOL/L (24-32); TOTAL PROTEIN 5.2 G/DL (6.4-8.2); eGFR 83 ML/MIN
[2021-09-27] MEDS: normal saline 1000ml 1,000 ML IV SCH (04:28)
[2021-09-27] MEDS: piperacillin/tazo 3.375gm/50ml 50 ML IV SCH ×2 (04:28→12:09)
[2021-09-27] MEDS ORDERED: diphenhydrAMINE 25 MG/10 ML UD oral solution PO ONE (04:45)
[2021-09-27] MEDS: acetaminophen 325mg/10.15ml oral unit dose solution OGT PRN ×2 (05:46→13:08)
[2021-09-27] MEDS: midazolam 100mg in NS 100ml 100 ML IV SCH ×3 (05:47→21:28)
[2021-09-27] MEDS: K, MAG and/or Phos replacement - Verify level? MC SCH (06:33)
[2021-09-27] MEDS: potassium Cl 40MEQ/250ML bag 270 ML IV PRN (06:35)
[2021-09-27] MEDS: pantoprazole 40 MG vial IV SCH (07:55)
[2021-09-27] MEDS: lactobacillus rhamnosus 10,000 MMU CELLS/CAPSULE OGT SCH ×2 (07:56→19:47)
[2021-09-27] MEDS: heparin, porcine 5000 units/ml vial SQ SCH ×2 (07:56→19:47)
[2021-09-27] MEDS: docusate sodium 100mg/10ml UD cup OGT SCH ×2 (07:56→19:48)
[2021-09-27] MEDS: ipratropium/albuterol 3ml nebule NEB PRN ×4 (08:21→23:09)
--- NOTE | 2021-09-27 09:05 | NUR ---
Patient in room ICU 2042. I have received report from Mac RN and had the opportunity to ask questions and assume patient care.
[2021-09-27] MEDS ORDERED: VANCOMYCIN LEVEL IV ONE (09:30)
[2021-09-27] MEDS ORDERED: furosemide 40mg/4ml inj IV ONE ×2 (10:30→18:25)
[2021-09-27] MEDS ORDERED: FLUoxetine 20mg capsule PO ONE (11:45)
[2021-09-27] MEDS ORDERED: lithium carbonate 150mg capsule PO ONE (11:50)
[2021-09-27] MEDS: lactulose 20gm/30ml cup PO PRN (12:09)
[2021-09-27] MEDS: NORepinephrine 8mg/ 250ml NS 250 ML IV SCH ×2 (12:10→15:06)
[2021-09-27] MEDS ORDERED: CefTRIAXone/D5W-Rocephin 1gm 50 ML IV ONE (15:40)
[2021-09-27 17:23] LABS: ABG BASE EXCESS 0.5 mmol/L (-2.0-2.0); ABG HCO3 24.8 mmol/L (22.0-26.0); ABG OXYGEN SATURATION 77.2 % (94-97); ABG PCO2 (T) 41.8 mmHg (35.0-48.0); ABG PO2 (T) 46.5 mmHg (75.0-100.0); ALLEN'S TEST POSITIVE; FCOHb 0.3 % (0.0-3.9); FMetHb 0.1 % (0.0-1.5); FO2Hb 76.9 % (94-97); PATIENT TEMPERATURE 38.9; PEEP 8 cm H2O; RESPIRATORY RATE 14 b/min; TIDAL VOLUME 450 mL; TOTAL HEMOGLOBIN 10.3 G/dl (14.0-18.0)
[2021-09-27] MEDS ORDERED: CISatracurium **Bolus** 2 mg/ml inj IV PRN (17:35)
[2021-09-27] MEDS ORDERED: CISatracurium **Bolus** 2 mg/ml inj IV ONE (17:35)
[2021-09-27] MEDS: morphine/NS 100mg/100ml bag 100 ML IV SCH (17:42)
--- NOTE | 2021-09-27 18:00 | NUR ---
Patient's resp rate increased to 40's. Ventilator unable to support patient's strong inspiratory pressures. Multiple boluses of Versed and Morphine given without decrease in resp. drive. O2 sats decreased to low 80's then decreased to 70's. Patient removed from ventilator and ventilated with ambu bag at 100% FiO2 without improvement in sats. ABG and CXR done. ABG showed pO2 46.5 and Sats 77%. CXR showed increasing infiltrates. Patient paralyzed with Nimbex. Sats continued in low 80's despite FiO2 100% and PEEP 12. Patient placed in prone position with sats increasing to low 90's. Patient's at bedside and instructed on severity of patient's condition.
[2021-09-27] MEDS: CISatracurium besylate inj. 100 MG in normal saline 100ml IV soln 90 ML IV PRN (18:17)
--- NOTE | 2021-09-27 19:11 | NUR ---
Problems reprioritized. Patient report given, questions answered & plan of care reviewed with Mac RN.
[2021-09-27 19:26] LABS: ABG HCO3 24.4 mmol/L (22.0-26.0); ABG OXYGEN SATURATION 90.5 % (94-97); ABG PCO2 (T) 47.7 mmHg (35.0-48.0); ABG PO2 (T) 72.4 mmHg (75.0-100.0); ALLEN'S TEST POSITIVE; FCOHb 0.3 % (0.0-3.9); FMetHb 0.4 % (0.0-1.5); FO2Hb 89.9 % (94-97); PEEP 12 cm H2O; RESPIRATORY RATE 30 b/min; TIDAL VOLUME 450 mL; TOTAL HEMOGLOBIN 11.3 G/dl (14.0-18.0)
[2021-09-27] MEDS: furosemide 40mg/4ml inj IV SCH (19:46)
[2021-09-27] MEDS: lithium carbonate 150mg capsule PO SCH (19:47)
[2021-09-27] MEDS: FLUoxetine 20mg capsule PO SCH (19:48)
[2021-09-27 20:11] LABS: ALANINE AMINOTRANSFERASE 48 U/L (12-78); ALBUMIN 1.9 G/DL (3.4-5.0); ALBUMIN/GLOBULIN RATIO 0.5 (1.1-1.5); ALKALINE PHOSPHATASE 166 IU/L (46-116); ANION GAP 8 (8-16); ASPARTATE AMINO TRANSFERASE 35 U/L (10-37); BILIRUBIN,TOTAL 0.7 MG/DL (0.1-1.0); BLOOD UREA NITROGEN 20 MG/DL (7-18); BUN/CREATININE RATIO 17.4 (5.4-32.0); CALCIUM 7.5 MG/DL (8.5-10.1); CHLORIDE 109 MMOL/L (99-107); CREATININE 1.15 MG/DL (0.60-1.10); GLUCOSE 104 MG/DL (70-104); MAGNESIUM 1.8 MG/DL (1.5-2.4); PHOSPHORUS 4.4 MG/DL (2.3-4.5); POTASSIUM 3.8 MMOL/L (3.5-5.1); SODIUM 145 MMOL/L (135-145); TOTAL CARBON DIOXIDE 27.6 MMOL/L (24-32); TOTAL PROTEIN 6.1 G/DL (6.4-8.2); eGFR 65 ML/MIN
[2021-09-28] VITALS (24 sets, daily range): BP systolic 99–127; BP diastolic 56–74
[2021-09-28] MEDS: CISatracurium besylate inj. 100 MG in normal saline 100ml IV soln 90 ML IV PRN ×2 (00:40→09:38)
[2021-09-28] MEDS: dexmedetomidin/NS 400mcg/100ml 100 ML IV SCH ×5 (00:41→20:30)
[2021-09-28] MEDS: morphine/NS 100mg/100ml bag 100 ML IV SCH ×2 (00:42→12:09)
[2021-09-28 01:33] LABS: BASOPHILS % (AUTO) 0.2 % (0-1); EOSINOPHILS % (AUTO) 0.1 % (0-6); HEMATOCRIT 27.2 % (42.0-52.0); HEMOGLOBIN 9.6 g/dl (14.0-17.9); LYMPHOCYTES # (AUTO) 0.4 X10'3 (1.1-4.8); LYMPHOCYTES % (AUTO) 3.5 % (21-51); MEAN CORPUSCULAR HEMOGLOBIN 32.9 PG (27.0-31.0); MEAN CORPUSCULAR HGB CONC 35.3 g/dL (33.0-36.5); MEAN CORPUSCULAR VOLUME 93.2 FL (78-98); MEAN PLATELET VOLUME 7.5 FL (7.4-10.4); MONOCYTES # (AUTO) 0.9 X10'3 (0-0.9); MONOCYTES % (AUTO) 9.2 % (2-12); NEUTROPHILS # (AUTO) 8.8 X10'3 (1.8-7.7); PLATELET COUNT 190 X10'3 (140-440); RED BLOOD COUNT 2.92 X10'6 (4.70-6.10); WHITE BLOOD COUNT 10.1 X10'3 (4.5-11.0)
[2021-09-28 01:53] LABS: PARTIAL THROMBOPLASTIN TIME 33 SECONDS (22-32)
[2021-09-28 01:55] LABS: ALANINE AMINOTRANSFERASE 46 U/L (12-78); ALBUMIN 1.9 G/DL (3.4-5.0); ALBUMIN/GLOBULIN RATIO 0.5 (1.1-1.5); ALKALINE PHOSPHATASE 155 IU/L (46-116); ANION GAP 9 (8-16); ASPARTATE AMINO TRANSFERASE 31 U/L (10-37); BILIRUBIN,TOTAL 0.6 MG/DL (0.1-1.0); BLOOD UREA NITROGEN 17 MG/DL (7-18); BUN/CREATININE RATIO 13.4 (5.4-32.0); CALCIUM 7.5 MG/DL (8.5-10.1); CHLORIDE 106 MMOL/L (99-107); CREATININE 1.27 MG/DL (0.60-1.10); GLUCOSE 114 MG/DL (70-104); MAGNESIUM 1.8 MG/DL (1.5-2.4); PHOSPHORUS 5.2 MG/DL (2.3-4.5); POTASSIUM 3.7 MMOL/L (3.5-5.1); SODIUM 144 MMOL/L (135-145); TOTAL PROTEIN 5.9 G/DL (6.4-8.2); eGFR 58 ML/MIN
[2021-09-28] MEDS: midazolam 100mg in NS 100ml 100 ML IV SCH ×4 (02:27→19:50)
[2021-09-28 03:23] LABS: ABG BASE EXCESS 2.8 mmol/L (-2.0-2.0); ABG HCO3 27.8 mmol/L (22.0-26.0); ABG OXYGEN SATURATION 98.7 % (94-97); ABG PCO2 (T) 42.6 mmHg (35.0-48.0); ABG PO2 (T) 160.3 mmHg (75.0-100.0); ALLEN'S TEST POSITIVE; FCOHb 0.2 % (0.0-3.9); FMetHb 0.1 % (0.0-1.5); FO2Hb 98.4 % (94-97); PATIENT TEMPERATURE 35.9; PEEP 12 cm H2O; RESPIRATORY RATE 30 b/min; TIDAL VOLUME 450 mL; TOTAL HEMOGLOBIN 10.5 G/dl (14.0-18.0)
--- NOTE | 2021-09-28 05:15 | NUR ---
Put pt on bairhugger for decreased temperature
[2021-09-28] MEDS: ipratropium/albuterol 3ml nebule NEB PRN ×4 (07:18→19:19)
[2021-09-28] MEDS: pantoprazole 40 MG vial IV SCH (07:45)
[2021-09-28] MEDS: lithium carbonate 150mg capsule PO SCH ×2 (07:46→19:49)
[2021-09-28] MEDS: docusate sodium 100mg/10ml UD cup OGT SCH ×2 (07:46→20:03)
[2021-09-28] MEDS: FLUoxetine 20mg capsule PO SCH ×2 (07:46→19:49)
[2021-09-28] MEDS: furosemide 40mg/4ml inj IV SCH ×2 (07:46→19:49)
[2021-09-28] MEDS: CefTRIAXone/D5W-Rocephin 1gm 50 ML IV SCH (07:46)
[2021-09-28] MEDS: lactobacillus rhamnosus 10,000 MMU CELLS/CAPSULE OGT SCH ×2 (07:46→19:49)
[2021-09-28] MEDS: heparin, porcine 5000 units/ml vial SQ SCH ×2 (07:51→19:50)
[2021-09-28] MEDS: K, MAG and/or Phos replacement - Verify level? MC SCH (08:00)
[2021-09-28] MEDS ORDERED: VANCOMYCIN LEVEL IV ONE (09:30)
[2021-09-28] MEDS: lactulose 20gm/30ml cup PO PRN ×2 (09:38→15:57)
--- NOTE | 2021-09-28 18:27 | NUR ---
Problems reprioritized. Patient report given, questions answered & plan of care reviewed with Evelin MARTINEZ.
--- NOTE | 2021-09-28 18:38 | NUR ---
Patient in room ICU 2042. I have received report from Taco MARTINEZ and had the opportunity to ask questions and assume patient care. Addendum: 09/28/21 at 1838 by Evelin Jones RN Amended: Links added.
[2021-09-28] MEDS: NORepinephrine 8mg/ 250ml NS 250 ML IV SCH (21:33)
[2021-09-29] VITALS (24 sets, daily range): BP systolic 89–120; BP diastolic 52–68
--- NOTE | 2021-09-29 00:15 | NUR ---
Titrating Levophed to keep MAP greater than 65. Patient diuresed well with PM Lasix dose. Synchronous with ventilator on Precedex, Midazolam and Morphine drip. Not requiring Nimbex boluses at this time. Will continue to monitor.
[2021-09-29] MEDS: lactulose 20gm/30ml cup PO SCH (00:30)
[2021-09-29 01:28] LABS: BASOPHILS % (AUTO) 0.3 % (0-1); EOSINOPHILS # (AUTO) 0.3 X10'3 (0-0.9); HEMATOCRIT 26.4 % (42.0-52.0); HEMOGLOBIN 9.2 g/dl (14.0-17.9); LYMPHOCYTES # (AUTO) 0.9 X10'3 (1.1-4.8); LYMPHOCYTES % (AUTO) 9.9 % (21-51); MEAN CORPUSCULAR HEMOGLOBIN 32.8 PG (27.0-31.0); MEAN CORPUSCULAR VOLUME 93.6 FL (78-98); MEAN PLATELET VOLUME 8.1 FL (7.4-10.4); MONOCYTES # (AUTO) 0.7 X10'3 (0-0.9); MONOCYTES % (AUTO) 7.4 % (2-12); NEUTROPHILS # (AUTO) 7.6 X10'3 (1.8-7.7); NEUTROPHILS % (AUTO) 79.4 % (42-75); PLATELET COUNT 232 X10'3 (140-440); RED BLOOD COUNT 2.82 X10'6 (4.70-6.10); RED CELL DISTRIBUTION WIDTH 13.1 % (11.5-14.5); WHITE BLOOD COUNT 9.6 X10'3 (4.5-11.0)
[2021-09-29] MEDS: midazolam 100mg in NS 100ml 100 ML IV SCH ×3 (01:37→08:47)
[2021-09-29] MEDS: dexmedetomidine/D5W 100mL 100 ML IV SCH ×5 (01:44→17:24)
[2021-09-29 01:49] LABS: PARTIAL THROMBOPLASTIN TIME 34 SECONDS (22-32)
[2021-09-29 01:51] LABS: ANION GAP 8 (8-16); BLOOD UREA NITROGEN 19 MG/DL (7-18); BUN/CREATININE RATIO 15.2 (5.4-32.0); CALCIUM 8.4 MG/DL (8.5-10.1); CHLORIDE 107 MMOL/L (99-107); CREATININE 1.25 MG/DL (0.60-1.10); GLUCOSE 122 MG/DL (70-104); POTASSIUM 3.2 MMOL/L (3.5-5.1); SODIUM 147 MMOL/L (135-145); TOTAL CARBON DIOXIDE 32.3 MMOL/L (24-32); eGFR 59 ML/MIN
[2021-09-29 01:52] LABS: ALANINE AMINOTRANSFERASE 34 U/L (12-78); ALBUMIN 1.8 G/DL (3.4-5.0); ALBUMIN/GLOBULIN RATIO 0.4 (1.1-1.5); ALKALINE PHOSPHATASE 130 IU/L (46-116); ASPARTATE AMINO TRANSFERASE 24 U/L (10-37); BILIRUBIN,TOTAL 0.5 MG/DL (0.1-1.0); MAGNESIUM 2.3 MG/DL (1.5-2.4); PHOSPHORUS 3.8 MG/DL (2.3-4.5); TOTAL PROTEIN 6.2 G/DL (6.4-8.2)
[2021-09-29] MEDS: ipratropium/albuterol 3ml nebule NEB PRN ×4 (02:38→15:55)
[2021-09-29 02:53] LABS: ABG BASE EXCESS 6.2 mmol/L (-2.0-2.0); ABG HCO3 30.1 mmol/L (22.0-26.0); ABG OXYGEN SATURATION 98.6 % (94-97); ABG PO2 (T) 138.5 mmHg (75.0-100.0); ALLEN'S TEST POSITIVE; FCOHb 0.3 % (0.0-3.9); FMetHb 0.4 % (0.0-1.5); FO2Hb 97.9 % (94-97); PATIENT TEMPERATURE 37.2; PEEP 12 cm H2O; RESPIRATORY RATE 30 b/min; TIDAL VOLUME 450 mL; TOTAL HEMOGLOBIN 12.5 G/dl (14.0-18.0)
[2021-09-29] MEDS: morphine/NS 100mg/100ml bag 100 ML IV SCH ×3 (04:41→21:44)
--- NOTE | 2021-09-29 05:00 | NUR ---
Dr. Hanson updated on patient's current status during AM rounds. Orders placed by .
[2021-09-29] MEDS: potassium Cl 40MEQ/250ML bag 270 ML IV PRN (05:36)
--- NOTE | 2021-09-29 06:33 | NUR ---
Problems reprioritized. Patient report given, questions answered & plan of care reviewed with Paty MARTINEZ.
--- NOTE | 2021-09-29 07:12 | NUR ---
Patient in room ICU 2042. I have received report from Evelin MARTINEZ and had the opportunity to ask questions and assume patient care.
--- NOTE | 2021-09-29 07:53 | NUR ---
Reassessment: Pt remains intubated and sedated, now proning during the night and paralyzed per MD note. Pt continues to receive TF at goal though pt has not had documented BM, receiving routine colace and PRN lactulose. No change to nutrition intervention at this time, will continue to monitor. Recs: 1) Continuous TF using Vital AF at 75ml/hr goal to provide 1800ml volume, 2160kcals, 135g Protein, 1458ml free water 2) Additional water flush 200ml Q4H 3) IF out of Vital AF sub Pivot 1.5 at 60ml/hr providing 1440ml volume, 2160kcals, 135g protein, 1094ml free water. Additional 250ml water flush Q4H 4) PALB Q /; daily wts 5) Routine bowel care 6) Upon extubation, advance to Regular diet as medically indicated Addendum: 09/29/21 at [address] Amended: Links added.
[2021-09-29] MEDS: K, MAG and/or Phos replacement - Verify level? MC SCH (08:00)
[2021-09-29] MEDS: CefTRIAXone/D5W-Rocephin 1gm 50 ML IV SCH (08:09)
[2021-09-29] MEDS: docusate sodium 100mg/10ml UD cup OGT SCH ×2 (08:09→20:05)
[2021-09-29] MEDS: pantoprazole 40 MG vial IV SCH (08:10)
[2021-09-29] MEDS: furosemide 40mg/4ml inj IV SCH (08:10)
[2021-09-29] MEDS: lactobacillus rhamnosus 10,000 MMU CELLS/CAPSULE OGT SCH ×2 (08:10→20:05)
[2021-09-29] MEDS: lithium carbonate 150mg capsule PO SCH ×2 (08:10→20:06)
[2021-09-29] MEDS: FLUoxetine 20mg capsule PO SCH ×2 (08:10→20:05)
[2021-09-29] MEDS: heparin, porcine 5000 units/ml vial SQ SCH ×2 (08:11→20:06)
[2021-09-29] MEDS: NORepinephrine 8mg/ 250ml NS 250 ML IV SCH ×2 (12:09→21:21)
--- NOTE | 2021-09-29 18:30 | NUR ---
Patient in room ICU 2042. I have received report from Paty MARTINEZ and had the opportunity to ask questions and assume patient care. Addendum: 09/29/21 at 1856 by Evelin Jones RN Amended: Links added.
[2021-09-29] MEDS: lactulose 20gm/30ml cup PO PRN (20:05)
[2021-09-29] MEDS: metoclopramide 5 mg/ml inj IV PRN (20:05)
--- NOTE | 2021-09-29 21:33 | NUR ---
Patient weakly attempts to open eyes with stimulation, Versed still off from dayshift. Does not follow commands. Strong cough w/ETT suction. Titrating Levophed to maintain MAP.
[2021-09-29] MEDS: acetaminophen 325mg/10.15ml oral unit dose solution OGT PRN (23:34)
[2021-09-30] VITALS (24 sets, daily range): BP systolic 100–131; BP diastolic 54–77
[2021-09-30] MEDS: dexmedetomidine/D5W 100mL 100 ML IV SCH (00:35)
[2021-09-30 03:03] LABS: BASOPHILS % (AUTO) 0.4 % (0-1); EOSINOPHILS # (AUTO) 0.2 X10'3 (0-0.9); HEMATOCRIT 25.4 % (42.0-52.0); HEMOGLOBIN 8.7 g/dl (14.0-17.9); LYMPHOCYTES # (AUTO) 0.9 X10'3 (1.1-4.8); LYMPHOCYTES % (AUTO) 9.8 % (21-51); MEAN CORPUSCULAR HEMOGLOBIN 32.4 PG (27.0-31.0); MEAN CORPUSCULAR HGB CONC 34.2 g/dL (33.0-36.5); MEAN CORPUSCULAR VOLUME 94.7 FL (78-98); MEAN PLATELET VOLUME 7.9 FL (7.4-10.4); MONOCYTES # (AUTO) 0.7 X10'3 (0-0.9); MONOCYTES % (AUTO) 7.9 % (2-12); NEUTROPHILS % (AUTO) 79.9 % (42-75); PLATELET COUNT 234 X10'3 (140-440); RED BLOOD COUNT 2.69 X10'6 (4.70-6.10); RED CELL DISTRIBUTION WIDTH 13.7 % (11.5-14.5); WHITE BLOOD COUNT 8.8 X10'3 (4.5-11.0)
[2021-09-30 03:13] LABS: PARTIAL THROMBOPLASTIN TIME 30 SECONDS (22-32)
[2021-09-30 03:25] LABS: ALANINE AMINOTRANSFERASE 42 U/L (12-78); ALBUMIN 1.7 G/DL (3.4-5.0); ALBUMIN/GLOBULIN RATIO 0.4 (1.1-1.5); ALKALINE PHOSPHATASE 158 IU/L (46-116); ANION GAP 5 (8-16); ASPARTATE AMINO TRANSFERASE 36 U/L (10-37); BILIRUBIN,TOTAL 0.4 MG/DL (0.1-1.0); BLOOD UREA NITROGEN 23 MG/DL (7-18); BUN/CREATININE RATIO 18.5 (5.4-32.0); CALCIUM 8.1 MG/DL (8.5-10.1); CHLORIDE 106 MMOL/L (99-107); CREATININE 1.24 MG/DL (0.60-1.10); GLUCOSE 121 MG/DL (70-104); MAGNESIUM 2.4 MG/DL (1.5-2.4); PHOSPHORUS 3.9 MG/DL (2.3-4.5); POTASSIUM 3.8 MMOL/L (3.5-5.1); SODIUM 143 MMOL/L (135-145); TOTAL CARBON DIOXIDE 31.8 MMOL/L (24-32); TOTAL PROTEIN 6.1 G/DL (6.4-8.2); eGFR 59 ML/MIN
[2021-09-30 04:12] LABS: ABG BASE EXCESS 3.8 mmol/L (-2.0-2.0); ABG HCO3 27.8 mmol/L (22.0-26.0); ABG OXYGEN SATURATION 93.9 % (94-97); ABG PCO2 (T) 40.3 mmHg (35.0-48.0); ABG PO2 (T) 72.1 mmHg (75.0-100.0); ALLEN'S TEST POSITIVE; FCOHb 0.3 % (0.0-3.9); FMetHb 0.2 % (0.0-1.5); FO2Hb 93.4 % (94-97); PATIENT TEMPERATURE 37.5; PEEP 12 cm H2O; RESPIRATORY RATE 26 b/min; TIDAL VOLUME 450 mL; TOTAL HEMOGLOBIN 9.2 G/dl (14.0-18.0)
--- NOTE | 2021-09-30 05:01 | NUR ---
Dr. Hanson updated on patient's status during AM rounds. Orders placed by .
--- NOTE | 2021-09-30 06:15 | NUR ---
Problems reprioritized. Patient report given, questions answered & plan of care reviewed with Paty MARTINEZ.
[2021-09-30 06:44] LABS: CLARITY,URINE CLEAR (Clear); COLOR,URINE YELLOW (Yellow); UA COLLECTION TYPE FOLEY CATH
[2021-09-30 06:45] LABS: GLUCOSE, URINE NEGATIVE (Neg); KETONES,URINE TRACE mg/dl (Neg); LEUKOCYTE ESTERASE ,URINE NEGATIVE (Neg); NITRITES, URINE NEGATIVE (Neg); OCCULT BLOOD,URINE NEGATIVE (Neg); PROTEIN,URINE 30 mg/dl (Neg); UROBILINOGEN,URINE 0.2 E.U/dL (0.2-1.0)
[2021-09-30 06:47] LABS: BACTERIA,URINE NONE SEEN /HPF (Neg); RBC,URINE 0-2 /HPF (0-2); SQUAMOUS EPITHELIAL CELL,UR NONE SEEN /LPF (FEW)
[2021-09-30 06:48] LABS: MUCUS STRANDS NONE SEEN /LPF (Neg)
--- NOTE | 2021-09-30 07:00 | NUR ---
Patient in room ICU 2042. I have received report from Evelin MARTINEZ and had the opportunity to ask questions and assume patient care.
[2021-09-30] MEDS: lactobacillus rhamnosus 10,000 MMU CELLS/CAPSULE OGT SCH ×2 (07:38→20:00)
[2021-09-30] MEDS: CefTRIAXone/D5W-Rocephin 1gm 50 ML IV SCH (07:38)
[2021-09-30] MEDS: lansoprazole 15mg solutab OGT SCH (07:38)
[2021-09-30] MEDS: docusate sodium 100mg/10ml UD cup OGT SCH ×2 (07:38→20:00)
[2021-09-30] MEDS: heparin, porcine 5000 units/ml vial SQ SCH ×2 (07:39→20:00)
[2021-09-30] MEDS: lithium carbonate 150mg capsule PO SCH ×2 (07:39→20:00)
[2021-09-30] MEDS: FLUoxetine 20mg capsule PO SCH ×2 (07:39→20:00)
[2021-09-30] MEDS: K, MAG and/or Phos replacement - Verify level? MC SCH (08:00)
[2021-09-30] MEDS: nystatin 500,000 unit/5ML UD oral suspension PO SCH ×3 (08:00→21:00)
--- NOTE | 2021-09-30 10:30 | NUR ---
rounds note reviewed, labs, systems, lines, drips, and medications. A picc line was ordered to replace the 09/21/21 Right groin central line. Lack of bowel movement was discussed and Q1 hour lactulose till bowel movement was ordered, can also administer PRN enema. Dr. Chu also ordered to turn down the fio2 to 40% and peep to 10.
[2021-09-30] MEDS: lactulose 20gm/30ml cup PO SCH ×10 (11:33→22:45)
[2021-09-30] MEDS: metoclopramide 5 mg/ml inj IV PRN (11:33)
[2021-09-30] MEDS: midazolam 100mg in NS 100ml 100 ML IV SCH (13:33)
[2021-09-30] MEDS: NORepinephrine 8mg/ 250ml NS 250 ML IV SCH (19:53)
[2021-10-01] VITALS (22 sets, daily range): BP systolic 97–144; BP diastolic 39–78
--- NOTE | 2021-10-01 02:30 | NUR ---
Pt had X's 2 episodes of large projectile vomiting, yellowish contents. Feeding turned off. HOB elevated in high arizmendi's position. Pt also had X's 2 loose stool. Reglan 10 mg given IV.
[2021-10-01] MEDS: metoclopramide 5 mg/ml inj IV PRN (02:47)
[2021-10-01] MEDS: acetaminophen 325mg/10.15ml oral unit dose solution OGT PRN (02:51)
[2021-10-01 03:41] LABS: BASOPHILS % (AUTO) 0.4 % (0-1); EOSINOPHILS # (AUTO) 0.1 X10'3 (0-0.9); EOSINOPHILS % (AUTO) 0.7 % (0-6); HEMATOCRIT 26.5 % (42.0-52.0); HEMOGLOBIN 9.1 g/dl (14.0-17.9); LYMPHOCYTES # (AUTO) 0.5 X10'3 (1.1-4.8); LYMPHOCYTES % (AUTO) 4.7 % (21-51); MEAN CORPUSCULAR HEMOGLOBIN 32.3 PG (27.0-31.0); MEAN CORPUSCULAR HGB CONC 34.2 g/dL (33.0-36.5); MEAN CORPUSCULAR VOLUME 94.6 FL (78-98); MONOCYTES # (AUTO) 0.8 X10'3 (0-0.9); MONOCYTES % (AUTO) 7.1 % (2-12); NEUTROPHILS # (AUTO) 9.8 X10'3 (1.8-7.7); NEUTROPHILS % (AUTO) 87.1 % (42-75); PLATELET COUNT 240 X10'3 (140-440); RED CELL DISTRIBUTION WIDTH 13.3 % (11.5-14.5); WHITE BLOOD COUNT 11.2 X10'3 (4.5-11.0)
[2021-10-01 03:45] LABS: ABG BASE EXCESS -0.3 mmol/L (-2.0-2.0); ABG HCO3 24.1 mmol/L (22.0-26.0); ABG OXYGEN SATURATION 92.9 % (94-97); ABG PCO2 (T) 40.8 mmHg (35.0-48.0); ABG PO2 (T) 75.7 mmHg (75.0-100.0); ALLEN'S TEST POSITIVE; FCOHb 0.3 % (0.0-3.9); FMetHb 0.2 % (0.0-1.5); FO2Hb 92.4 % (94-97); PATIENT TEMPERATURE 38.4; PEEP 10 cm H2O; RESPIRATORY RATE 26 b/min; TIDAL VOLUME 450 mL
[2021-10-01 03:52] LABS: ALANINE AMINOTRANSFERASE 44 U/L (12-78); ALBUMIN/GLOBULIN RATIO 0.4 (1.1-1.5); ALKALINE PHOSPHATASE 145 IU/L (46-116); ANION GAP 9 (8-16); ASPARTATE AMINO TRANSFERASE 44 U/L (10-37); BILIRUBIN,TOTAL 0.4 MG/DL (0.1-1.0); BLOOD UREA NITROGEN 21 MG/DL (7-18); BUN/CREATININE RATIO 19.8 (5.4-32.0); CALCIUM 8.4 MG/DL (8.5-10.1); CHLORIDE 106 MMOL/L (99-107); CREATININE 1.06 MG/DL (0.60-1.10); GLUCOSE 117 MG/DL (70-104); MAGNESIUM 2.4 MG/DL (1.5-2.4); PARTIAL THROMBOPLASTIN TIME 28 SECONDS (22-32); PHOSPHORUS 4.1 MG/DL (2.3-4.5); POTASSIUM 3.5 MMOL/L (3.5-5.1); SODIUM 143 MMOL/L (135-145); TOTAL CARBON DIOXIDE 27.7 MMOL/L (24-32); TOTAL PROTEIN 6.7 G/DL (6.4-8.2); eGFR 71 ML/MIN
[2021-10-01] MEDS: dexmedetomidine/D5W 100mL 100 ML IV SCH ×4 (05:18→22:44)
[2021-10-01] MEDS: morphine/NS 100mg/100ml bag 100 ML IV SCH ×2 (07:00→23:00)
[2021-10-01] MEDS: docusate sodium 100mg/10ml UD cup OGT SCH ×2 (07:14→19:52)
[2021-10-01] MEDS: lansoprazole 15mg solutab OGT SCH (08:24)
[2021-10-01] MEDS: lactobacillus rhamnosus 10,000 MMU CELLS/CAPSULE OGT SCH ×2 (08:24→19:52)
[2021-10-01] MEDS: nystatin 500,000 unit/5ML UD oral suspension PO SCH ×3 (08:24→21:47)
[2021-10-01] MEDS: FLUoxetine 20mg capsule PO SCH ×2 (08:26→19:53)
[2021-10-01] MEDS: heparin, porcine 5000 units/ml vial SQ SCH ×2 (08:26→20:00)
[2021-10-01] MEDS: CefTRIAXone/D5W-Rocephin 1gm 50 ML IV SCH (08:26)
[2021-10-01] MEDS: lithium carbonate 150mg capsule PO SCH ×2 (08:26→19:53)
[2021-10-01] MEDS: K, MAG and/or Phos replacement - Verify level? MC SCH (08:58)
--- NOTE | 2021-10-01 09:49 | NUR ---
Patient in room ICU 2042. I have received report from Shira MARTINEZ and had the opportunity to ask questions and assume patient care.
[2021-10-01] MEDS: NORepinephrine 8mg/ 250ml NS 250 ML IV SCH (11:14)
--- NOTE | 2021-10-01 14:33 | NUR ---
R femoral groin line removed, line intact. clear dressing applied to site
[2021-10-01] MEDS ORDERED: racepinephrine 11.25mg/0.5ml nebule IH PRN (15:45)
[2021-10-01] MEDS ORDERED: racepinephrine 11.25mg/0.5ml nebule NEB PRN (15:45)
--- NOTE | 2021-10-01 16:18 | NUR ---
Dr. Chu by to round on patient, reviewed weaning parameters, stated to extubate patient. Extubation orders entered RT notified. Patient extubated 1550, on 6L NC
--- NOTE | 2021-10-01 16:39 | NUR ---
Poison control called MICHAEL Pinzon gave her an update of patients current condition and meds. She stated that they are going to close the case
--- NOTE | 2021-10-01 19:30 | NUR ---
Pt had a moderate amount of greenish liquid, projectile vomiting. Zofran 4 mg given IV.
--- NOTE | 2021-10-01 19:40 | NUR ---
Pt saturation decreasing to low 80"s, Nguyen face mask placed on 15L @ 50%.
[2021-10-01] MEDS: ondansetron/PF 4mg/2ml inj IV PRN (19:43)
--- NOTE | 2021-10-01 19:50 | NUR ---
Pt pulling off oxygen mask, unable to re-direct. Saturation decreasing, Dr. Mclean notified regarding pt agitation, "resume precedex infusion". Sitter at bedside.
[2021-10-01] MEDS: ipratropium/albuterol 3ml nebule NEB SCH (21:21)
[2021-10-01] MEDS ORDERED: morphine 4 MG/ML inj SYRINge IV ONE (23:50)
[2021-10-02] VITALS (27 sets, daily range): BP systolic 99–143; BP diastolic 51–74
[2021-10-02] MEDS: dexmedetomidine/D5W 100mL 100 ML IV SCH ×4 (01:27→10:49)
[2021-10-02 02:50] LABS: BASOPHILS % (AUTO) 0.1 % (0-1); EOSINOPHILS # (AUTO) 0.1 X10'3 (0-0.9); EOSINOPHILS % (AUTO) 0.6 % (0-6); HEMATOCRIT 25.6 % (42.0-52.0); HEMOGLOBIN 8.7 g/dl (14.0-17.9); LYMPHOCYTES # (AUTO) 0.7 X10'3 (1.1-4.8); LYMPHOCYTES % (AUTO) 6.2 % (21-51); MEAN CORPUSCULAR HEMOGLOBIN 31.7 PG (27.0-31.0); MEAN CORPUSCULAR HGB CONC 33.9 g/dL (33.0-36.5); MEAN CORPUSCULAR VOLUME 93.7 FL (78-98); MEAN PLATELET VOLUME 8.1 FL (7.4-10.4); MONOCYTES # (AUTO) 0.8 X10'3 (0-0.9); MONOCYTES % (AUTO) 7.1 % (2-12); NEUTROPHILS # (AUTO) 9.9 X10'3 (1.8-7.7); PLATELET COUNT 234 X10'3 (140-440); RED BLOOD COUNT 2.73 X10'6 (4.70-6.10); RED CELL DISTRIBUTION WIDTH 12.7 % (11.5-14.5); WHITE BLOOD COUNT 11.5 X10'3 (4.5-11.0)
[2021-10-02] MEDS: ipratropium/albuterol 3ml nebule NEB SCH ×4 (02:54→20:34)
[2021-10-02 03:06] LABS: PARTIAL THROMBOPLASTIN TIME 32 SECONDS (22-32)
[2021-10-02 03:10] LABS: ALANINE AMINOTRANSFERASE 34 U/L (12-78); ALBUMIN 1.9 G/DL (3.4-5.0); ALBUMIN/GLOBULIN RATIO 0.5 (1.1-1.5); ALKALINE PHOSPHATASE 111 IU/L (46-116); ANION GAP 9 (8-16); ASPARTATE AMINO TRANSFERASE 31 U/L (10-37); BILIRUBIN,TOTAL 0.5 MG/DL (0.1-1.0); BLOOD UREA NITROGEN 16 MG/DL (7-18); BUN/CREATININE RATIO 18.8 (5.4-32.0); CALCIUM 8.2 MG/DL (8.5-10.1); CHLORIDE 107 MMOL/L (99-107); CREATININE 0.85 MG/DL (0.60-1.10); GLUCOSE 117 MG/DL (70-104); MAGNESIUM 2.2 MG/DL (1.5-2.4); PHOSPHORUS 2.9 MG/DL (2.3-4.5); POTASSIUM 3.3 MMOL/L (3.5-5.1); SODIUM 144 MMOL/L (135-145); TOTAL CARBON DIOXIDE 28.1 MMOL/L (24-32); TOTAL PROTEIN 6.1 G/DL (6.4-8.2); eGFR > 90 ML/MIN
[2021-10-02] MEDS: NORepinephrine 8mg/ 250ml NS 250 ML IV SCH ×2 (03:37→19:29)
[2021-10-02] MEDS ORDERED: OLANZAPINE 5 MG TABLET PO ONE (04:45)
[2021-10-02] MEDS: heparin, porcine 5000 units/ml vial SQ SCH ×2 (06:49→19:58)
[2021-10-02] MEDS: CefTRIAXone/D5W-Rocephin 1gm 50 ML IV SCH (06:52)
[2021-10-02] MEDS: docusate sodium 100mg/10ml UD cup OGT SCH ×2 (06:52→20:02)
[2021-10-02] MEDS: nystatin 500,000 unit/5ML UD oral suspension PO SCH ×3 (06:53→20:02)
[2021-10-02] MEDS: lactobacillus rhamnosus 10,000 MMU CELLS/CAPSULE OGT SCH ×2 (06:53→19:57)
[2021-10-02] MEDS: FLUoxetine 20mg capsule PO SCH ×2 (08:06→19:58)
[2021-10-02] MEDS: lansoprazole 15mg solutab OGT SCH (08:06)
[2021-10-02] MEDS: lithium carbonate 150mg capsule PO SCH ×2 (08:06→19:57)
[2021-10-02] MEDS: K, MAG and/or Phos replacement - Verify level? MC SCH (08:38)
[2021-10-02] MEDS: potassium Cl 40MEQ/250ML bag 270 ML IV PRN (09:02)
--- NOTE | 2021-10-02 11:15 | NUR ---
Reassessment: Pt extubated 10/01 and TF also stopped. Pt noted w/ episodes of vomiting 09/30 and 10/01. Pt seen by WOMEN'S GARMENT FITTER today and recommended Puree diet w/ NTL. LBM 10/01 receiving routine colace. Will continue to monitor PO trends and make recommendations as appropriate. Recs: 1) Continue Puree NTL diet per WOMEN'S GARMENT FITTER recs 2) Monitor need for ONS pending PO 3) Bowel care per rx 4) Weekly wts Addendum: 10/02/21 at [address] Amended: Links added.
[2021-10-02] MEDS: ondansetron/PF 4mg/2ml inj IV PRN (13:04)
[2021-10-02] MEDS: metoclopramide 5 mg/ml inj IV PRN ×2 (14:19→19:59)
[2021-10-02] MEDS: midazolam 100mg in NS 100ml 100 ML IV SCH (18:00)
[2021-10-03] VITALS (21 sets, daily range): BP systolic 108–139; BP diastolic 44–73
[2021-10-03] MEDS: ipratropium/albuterol 3ml nebule NEB SCH ×4 (03:29→20:07)
--- NOTE | 2021-10-03 06:25 | NUR ---
Problems reprioritized. Patient report given, questions answered & plan of care reviewed with Gala MARTINEZ .
[2021-10-03] MEDS: CefTRIAXone/D5W-Rocephin 1gm 50 ML IV SCH (07:34)
[2021-10-03] MEDS: heparin, porcine 5000 units/ml vial SQ SCH ×2 (07:36→19:57)
[2021-10-03] MEDS: lactobacillus rhamnosus 10,000 MMU CELLS/CAPSULE OGT SCH ×3 (07:37→20:00)
[2021-10-03] MEDS: FLUoxetine 20mg capsule PO SCH ×3 (07:37→20:00)
[2021-10-03] MEDS: nystatin 500,000 unit/5ML UD oral suspension PO SCH ×4 (07:37→20:24)
[2021-10-03] MEDS: lansoprazole 15mg solutab OGT SCH ×2 (07:37→08:00)
[2021-10-03] MEDS: lithium carbonate 150mg capsule PO SCH ×2 (07:39→20:00)
[2021-10-03] MEDS: docusate sodium 100mg/10ml UD cup OGT SCH ×3 (07:39→20:00)
[2021-10-03] MEDS: K, MAG and/or Phos replacement - Verify level? MC SCH (08:00)
[2021-10-03] MEDS: metoclopramide 5 mg/ml inj IV PRN (09:00)
[2021-10-03 09:52] LABS: BASOPHILS % (AUTO) 0.3 % (0-1); EOSINOPHILS # (AUTO) 0.1 X10'3 (0-0.9); EOSINOPHILS % (AUTO) 0.7 % (0-6); HEMATOCRIT 24.7 % (42.0-52.0); HEMOGLOBIN 8.5 g/dl (14.0-17.9); LYMPHOCYTES # (AUTO) 0.7 X10'3 (1.1-4.8); LYMPHOCYTES % (AUTO) 7.8 % (21-51); MEAN CORPUSCULAR HEMOGLOBIN 31.9 PG (27.0-31.0); MEAN CORPUSCULAR HGB CONC 34.3 g/dL (33.0-36.5); MEAN CORPUSCULAR VOLUME 93.1 FL (78-98); MEAN PLATELET VOLUME 7.8 FL (7.4-10.4); MONOCYTES # (AUTO) 0.9 X10'3 (0-0.9); NEUTROPHILS # (AUTO) 7.7 X10'3 (1.8-7.7); NEUTROPHILS % (AUTO) 81.2 % (42-75); PLATELET COUNT 303 X10'3 (140-440); RED BLOOD COUNT 2.65 X10'6 (4.70-6.10); RED CELL DISTRIBUTION WIDTH 13.1 % (11.5-14.5); WHITE BLOOD COUNT 9.4 X10'3 (4.5-11.0)
[2021-10-03 09:59] LABS: PARTIAL THROMBOPLASTIN TIME 27 SECONDS (22-32)
[2021-10-03 10:12] LABS: ALBUMIN 2.1 G/DL (3.4-5.0); ANION GAP 11 (8-16); BILIRUBIN,TOTAL 0.5 MG/DL (0.1-1.0); BLOOD UREA NITROGEN 22 MG/DL (7-18); BUN/CREATININE RATIO 23.2 (5.4-32.0); CHLORIDE 112 MMOL/L (99-107); CREATININE 0.95 MG/DL (0.60-1.10); GLUCOSE 107 MG/DL (70-104); MAGNESIUM 2.4 MG/DL (1.5-2.4); PHOSPHORUS 3.7 MG/DL (2.3-4.5); POTASSIUM 3.1 MMOL/L (3.5-5.1); SODIUM 148 MMOL/L (135-145); TOTAL CARBON DIOXIDE 25.2 MMOL/L (24-32); TOTAL PROTEIN 6.1 G/DL (6.4-8.2); eGFR 81 ML/MIN
[2021-10-03 10:13] LABS: ALANINE AMINOTRANSFERASE 37 U/L (12-78); ALBUMIN/GLOBULIN RATIO 0.5 (1.1-1.5); ALKALINE PHOSPHATASE 92 IU/L (46-116); ASPARTATE AMINO TRANSFERASE 30 U/L (10-37)
[2021-10-03] MEDS: sodium chloride 0.45% 1,000 ML IV SCH ×2 (10:37→23:54)
[2021-10-03] MEDS: potassium Cl 40MEQ/250ML bag 270 ML IV PRN ×3 (11:03→19:58)
--- NOTE | 2021-10-03 13:52 | NUR ---
Most 0800 medications were non-administered d/t pt not safe to swallow per bed side swallow study and ST swallow study as well. Carlos Alberto GARCIA, will attempt again tomorrow for another swallow study. Pending Dr orders.
--- NOTE | 2021-10-03 14:00 | NUR ---
Pt refused 1400 blood sugar check. Addendum: 10/03/21 at 1519 by Elke Cheung RN Amended: Links added.
--- NOTE | 2021-10-03 16:50 | NUR ---
per MD - MD is aware that pt is having a difficult time swallowing and is not able to eat or drink. Speech therapy will reassess 11/12 AM. No new orders at this time.
--- NOTE | 2021-10-03 18:16 | NUR ---
Problems reprioritized. Patient report given, questions answered & plan of care reviewed with JUAN Means.
--- NOTE | 2021-10-03 19:42 | NUR ---
k=3.1 call pharmacy for potassium IV replacement. Pt is in stable condition with period of confusion. Attempted to pull his Oxygen canula. Sitter at bedside monitoring pt.
[2021-10-03] MEDS: dexmedetomidine/D5W 100mL 100 ML IV SCH (19:44)
--- NOTE | 2021-10-03 20:20 | NUR ---
K level draw for clarification, before administering med.
--- NOTE | 2021-10-03 20:56 | NUR ---
Potassium replacement started; k level=3.0
[2021-10-04] VITALS (18 sets, daily range): BP systolic 115–147; BP diastolic 49–76
[2021-10-04] MEDS: ipratropium/albuterol 3ml nebule NEB SCH ×4 (02:14→21:13)
[2021-10-04] MEDS: potassium Cl 40MEQ/250ML bag 270 ML IV PRN (02:14)
[2021-10-04] MEDS ORDERED: acetaminophen 1,000mg/100ml IV 100 ML IV ONE (02:45)
[2021-10-04] MEDS: dexmedetomidine/D5W 100mL 100 ML IV SCH (06:16)
[2021-10-04 06:45] LABS: BASOPHILS % (AUTO) 0.3 % (0-1); EOSINOPHILS # (AUTO) 0.1 X10'3 (0-0.9); EOSINOPHILS % (AUTO) 1.4 % (0-6); HEMATOCRIT 24.4 % (42.0-52.0); HEMOGLOBIN 8.4 g/dl (14.0-17.9); LYMPHOCYTES # (AUTO) 1.1 X10'3 (1.1-4.8); LYMPHOCYTES % (AUTO) 12.2 % (21-51); MEAN CORPUSCULAR HEMOGLOBIN 32.2 PG (27.0-31.0); MEAN CORPUSCULAR HGB CONC 34.5 g/dL (33.0-36.5); MEAN CORPUSCULAR VOLUME 93.5 FL (78-98); MEAN PLATELET VOLUME 8.2 FL (7.4-10.4); MONOCYTES % (AUTO) 11.9 % (2-12); NEUTROPHILS # (AUTO) 6.5 X10'3 (1.8-7.7); NEUTROPHILS % (AUTO) 74.2 % (42-75); PLATELET COUNT 166 X10'3 (140-440); RED BLOOD COUNT 2.61 X10'6 (4.70-6.10); RED CELL DISTRIBUTION WIDTH 12.8 % (11.5-14.5); WHITE BLOOD COUNT 8.7 X10'3 (4.5-11.0)
[2021-10-04 06:59] LABS: ALANINE AMINOTRANSFERASE 37 U/L (12-78); ALBUMIN/GLOBULIN RATIO 0.5 (1.1-1.5); ALKALINE PHOSPHATASE 83 IU/L (46-116); ANION GAP 12 (8-16); ASPARTATE AMINO TRANSFERASE 35 U/L (10-37); BILIRUBIN,TOTAL 0.5 MG/DL (0.1-1.0); BLOOD UREA NITROGEN 22 MG/DL (7-18); BUN/CREATININE RATIO 23.7 (5.4-32.0); CALCIUM 7.9 MG/DL (8.5-10.1); CHLORIDE 114 MMOL/L (99-107); CREATININE 0.93 MG/DL (0.60-1.10); GLUCOSE 93 MG/DL (70-104); MAGNESIUM 2.1 MG/DL (1.5-2.4); PHOSPHORUS 3.8 MG/DL (2.3-4.5); POTASSIUM 3.7 MMOL/L (3.5-5.1); SODIUM 147 MMOL/L (135-145); TOTAL CARBON DIOXIDE 21.5 MMOL/L (24-32); TOTAL PROTEIN 5.7 G/DL (6.4-8.2); eGFR 83 ML/MIN
[2021-10-04] MEDS: FLUoxetine 20mg capsule PO SCH ×2 (08:00→22:23)
[2021-10-04] MEDS: lansoprazole 15mg solutab OGT SCH (08:00)
[2021-10-04] MEDS: docusate sodium 100mg/10ml UD cup OGT SCH ×2 (08:00→20:00)
[2021-10-04] MEDS: K, MAG and/or Phos replacement - Verify level? MC SCH (08:00)
[2021-10-04] MEDS: lactobacillus rhamnosus 10,000 MMU CELLS/CAPSULE OGT SCH ×2 (08:00→20:00)
[2021-10-04] MEDS: lithium carbonate 150mg capsule PO SCH ×2 (08:00→22:22)
[2021-10-04] MEDS: CefTRIAXone/D5W-Rocephin 1gm 50 ML IV SCH (08:21)
[2021-10-04] MEDS: nystatin 500,000 unit/5ML UD oral suspension PO SCH ×3 (08:21→22:23)
[2021-10-04] MEDS: heparin, porcine 5000 units/ml vial SQ SCH ×2 (08:22→22:24)
[2021-10-04 08:32] LABS: PARTIAL THROMBOPLASTIN TIME 21 SECONDS (22-32)
--- NOTE | 2021-10-04 12:16 | NUR ---
TF Consult: Pt failed FLY MAKER BSS since 10/03 pending corpak placement for NG nutrition at this time. TF recs below given pt needs. Receiving NS at 100ml/hr w/ serum Na 147 this AM; would benefit from weaning once TF advanced and tolerance assured as medically indicated. LBM 10/03. Will monitor for TF tolerance and adjustment needs. Recs: 1. Continuous TF per MD using Vital AF at 75ml/hr goal; to provide 1800ml volume, 2160kcals, 1450ml water, and 135g protein. 2. Additional water flush 200ml Q4H; monitor serum Na for adjustment needs 3. PALB Q /; daily wts 4. wean NS once TF advances if MD agreeable; currently receiving NS at 100ml/hr w/ serum Na 147 this AM 5. routine bowel care 6. advance diet per FLY MAKER/MD recs to regular; once cleared for PO by FLY MAKER continue NG feeds until PO acceptance consistently at least ~50% avg regular meals Addendum: 10/04/21 at [address] Amended: Links added.
[2021-10-04] MEDS: sodium chloride 0.45% 1,000 ML IV SCH ×2 (13:17→16:30)
--- NOTE | 2021-10-04 16:30 | NUR ---
Received pt to unit. NG to right nare, Vital running at 30ml/hr. Tele box 6 hooked up. All alarms on and audible. PICC ro FLAKITA with 1/2 NS running at 100ml/hr. F/C draining to gravity. Call light within reach. Safety measures in place, sitter at bedside. Will continue to monitor.
--- NOTE | 2021-10-04 18:47 | NUR ---
Problems reprioritized. Patient report given, questions answered & plan of care reviewed with JUAN Og.
[2021-10-04] MEDS: metoclopramide 5 mg/ml inj IV PRN (22:42)
[2021-10-05 02:00] VITALS: BP 121/61
[2021-10-05] MEDS: sodium chloride 0.45% 1,000 ML IV SCH ×2 (02:53→09:03)
[2021-10-05] MEDS: ipratropium/albuterol 3ml nebule NEB SCH ×3 (03:09→16:50)
[2021-10-05 05:51] LABS: BASOPHILS # (AUTO) 0.1 X10'3 (0-0.2); BASOPHILS % (AUTO) 0.5 % (0-1); EOSINOPHILS # (AUTO) 0.3 X10'3 (0-0.9); EOSINOPHILS % (AUTO) 2.8 % (0-6); HEMATOCRIT 25.4 % (42.0-52.0); HEMOGLOBIN 8.8 g/dl (14.0-17.9); LYMPHOCYTES # (AUTO) 1.1 X10'3 (1.1-4.8); LYMPHOCYTES % (AUTO) 11.2 % (21-51); MEAN CORPUSCULAR HGB CONC 34.7 g/dL (33.0-36.5); MEAN CORPUSCULAR VOLUME 92.2 FL (78-98); MEAN PLATELET VOLUME 7.8 FL (7.4-10.4); MONOCYTES # (AUTO) 1.2 X10'3 (0-0.9); MONOCYTES % (AUTO) 12.7 % (2-12); NEUTROPHILS % (AUTO) 72.8 % (42-75); PLATELET COUNT 346 X10'3 (140-440); RED BLOOD COUNT 2.75 X10'6 (4.70-6.10); RED CELL DISTRIBUTION WIDTH 12.9 % (11.5-14.5); WHITE BLOOD COUNT 9.7 X10'3 (4.5-11.0)
[2021-10-05 06:00] VITALS: BP 114/57
[2021-10-05 06:04] LABS: PARTIAL THROMBOPLASTIN TIME 30 SECONDS (22-32)
[2021-10-05 06:14] LABS: ALANINE AMINOTRANSFERASE 34 U/L (12-78); ALBUMIN 1.9 G/DL (3.4-5.0); ALBUMIN/GLOBULIN RATIO 0.5 (1.1-1.5); ALKALINE PHOSPHATASE 84 IU/L (46-116); ANION GAP 10 (8-16); ASPARTATE AMINO TRANSFERASE 32 U/L (10-37); BILIRUBIN,TOTAL 0.4 MG/DL (0.1-1.0); BLOOD UREA NITROGEN 19 MG/DL (7-18); BUN/CREATININE RATIO 21.3 (5.4-32.0); CALCIUM 7.3 MG/DL (8.5-10.1); CHLORIDE 111 MMOL/L (99-107); CREATININE 0.89 MG/DL (0.60-1.10); GLUCOSE 108 MG/DL (70-104); MAGNESIUM 1.9 MG/DL (1.5-2.4); PHOSPHORUS 3.4 MG/DL (2.3-4.5); SODIUM 143 MMOL/L (135-145); TOTAL CARBON DIOXIDE 22.3 MMOL/L (24-32); TOTAL PROTEIN 5.7 G/DL (6.4-8.2); eGFR 87 ML/MIN
[2021-10-05 06:22] LABS: POTASSIUM 2.8 MMOL/L (3.5-5.1)
--- NOTE | 2021-10-05 07:10 | NUR ---
Paged Dr Abreu PAGER ID: [phone] MESSAGE: Room 3025B, [place]. Critical K 2.8 - replacing per protocol. DONNIE. Thanks, Elke [phone]
[2021-10-05] MEDS: potassium Cl 40MEQ/250ML bag 270 ML IV PRN ×2 (07:29→11:18)
[2021-10-05] MEDS: K, MAG and/or Phos replacement - Verify level? MC SCH (08:00)
[2021-10-05] MEDS: lactobacillus rhamnosus 10,000 MMU CELLS/CAPSULE OGT SCH ×2 (08:00→20:51)
[2021-10-05] MEDS: nystatin 500,000 unit/5ML UD oral suspension PO SCH ×2 (08:00→13:00)
[2021-10-05] MEDS: docusate sodium 100mg/10ml UD cup OGT SCH ×2 (08:00→20:00)
[2021-10-05] MEDS: heparin, porcine 5000 units/ml vial SQ SCH ×2 (08:57→20:55)
[2021-10-05] MEDS: lansoprazole 15mg solutab OGT SCH (08:59)
[2021-10-05] MEDS: lithium carbonate 150mg capsule PO SCH ×2 (09:00→09:02)
[2021-10-05] MEDS: FLUoxetine 20mg capsule PO SCH ×2 (09:01→20:00)
[2021-10-05] MEDS: CefTRIAXone/D5W-Rocephin 1gm 50 ML IV SCH (09:02)
[2021-10-05 11:00] VITALS: BP 109/57
[2021-10-05 15:00] VITALS: BP 121/76
[2021-10-05] MEDS ORDERED: lactulose 20gm/30ml cup OGT PRN (16:11)
[2021-10-05 18:00] VITALS: BP 120/66
--- NOTE | 2021-10-05 18:12 | NUR ---
Patient in room PCU 3025. I have received report from JUAN Ho and had the opportunity to ask questions and assume patient care. Patient is current in bed appears in good spirit. Family at bedside. All safety in place. Call light within easy reach. Patient reminded to call for help as needed. Will continue frequent rounding.
--- NOTE | 2021-10-05 18:19 | NUR ---
Orientee documentation: I have reviewed and agree with all interventions, assessments performed and documented by JUAN Ho.
--- NOTE | 2021-10-05 18:24 | NUR ---
Report given Lenka MARTINEZ, noc shift. Plan of care discussed. All questions answered.
[2021-10-05] MEDS: nystatin 500,000 unit/5ML UD oral suspension OGT SCH (20:57)
[2021-10-05 22:00] VITALS: BP 110/64
--- NOTE | 2021-10-05 23:57 | NUR ---
Page was sent to RT for patient episode of SOB.
--- NOTE | 2021-10-06 00:01 | NUR ---
TURNING MACHINE OPERATOR at beside breathing tx is being administered. Sitter at bedside
[2021-10-06] MEDS: ipratropium/albuterol 3ml nebule NEB PRN ×2 (00:04→20:01)
[2021-10-06] MEDS ORDERED: LORazepam 2 mg/ml vial IV PRN (00:25)
[2021-10-06] MEDS: sodium chloride 0.45% 1,000 ML IV SCH ×2 (00:43→13:46)
[2021-10-06 02:00] VITALS: BP 117/66
[2021-10-06] MEDS: acetaminophen 325mg/10.15ml oral unit dose solution OGT PRN (05:40)
--- NOTE | 2021-10-06 06:15 | NUR ---
Patient in room PCU 3025. I have received report from JUAN SERRANO, and had the opportunity to ask questions and assume patient care.
--- NOTE | 2021-10-06 06:15 | NUR ---
Problems reprioritized. Patient report given, questions answered & plan of care reviewed with JUAN Smith.
[2021-10-06] MEDS: docusate sodium 100mg/10ml UD cup OGT SCH ×3 (08:00→19:08)
[2021-10-06] MEDS: nystatin 500,000 unit/5ML UD oral suspension OGT SCH ×2 (08:00→14:05)
[2021-10-06] MEDS: K, MAG and/or Phos replacement - Verify level? MC SCH (08:00)
[2021-10-06] MEDS: CefTRIAXone/D5W-Rocephin 1gm 50 ML IV SCH (09:04)
--- NOTE | 2021-10-06 09:31 | NUR ---
PAGE SENT PAGER ID: [phone] MESSAGE: [id number], JOB SCHULER, PT'S NG TUBE SLID OUT, PERFORMED SWALLOW EVAL, PT TOLERATED WATER AND CRACKER WELL. REPLACE NG? OR ADVANCE DIET? THANK YOU. JORGE Beasley [phone]
[2021-10-06 10:21] LABS: BASOPHILS % (AUTO) 0.3 % (0-1); EOSINOPHILS # (AUTO) 0.4 X10'3 (0-0.9); EOSINOPHILS % (AUTO) 4.5 % (0-6); HEMATOCRIT 26.4 % (42.0-52.0); HEMOGLOBIN 9.2 g/dl (14.0-17.9); LYMPHOCYTES # (AUTO) 0.9 X10'3 (1.1-4.8); LYMPHOCYTES % (AUTO) 8.9 % (21-51); MEAN CORPUSCULAR HGB CONC 34.7 g/dL (33.0-36.5); MEAN CORPUSCULAR VOLUME 92.2 FL (78-98); MEAN PLATELET VOLUME 7.9 FL (7.4-10.4); MONOCYTES # (AUTO) 1.1 X10'3 (0-0.9); MONOCYTES % (AUTO) 10.6 % (2-12); NEUTROPHILS # (AUTO) 7.6 X10'3 (1.8-7.7); NEUTROPHILS % (AUTO) 75.7 % (42-75); PLATELET COUNT 362 X10'3 (140-440); RED BLOOD COUNT 2.86 X10'6 (4.70-6.10); RED CELL DISTRIBUTION WIDTH 13.4 % (11.5-14.5)
[2021-10-06 10:53] LABS: ALANINE AMINOTRANSFERASE 40 U/L (12-78); ALBUMIN 2.2 G/DL (3.4-5.0); ALBUMIN/GLOBULIN RATIO 0.6 (1.1-1.5); ALKALINE PHOSPHATASE 81 IU/L (46-116); ANION GAP 12 (8-16); ASPARTATE AMINO TRANSFERASE 29 U/L (10-37); BILIRUBIN,TOTAL 0.5 MG/DL (0.1-1.0); BLOOD UREA NITROGEN 15 MG/DL (7-18); BUN/CREATININE RATIO 17.6 (5.4-32.0); CALCIUM 7.9 MG/DL (8.5-10.1); CHLORIDE 111 MMOL/L (99-107); CREATININE 0.85 MG/DL (0.60-1.10); GLUCOSE 108 MG/DL (70-104); POTASSIUM 3.5 MMOL/L (3.5-5.1); SODIUM 145 MMOL/L (135-145); eGFR > 90 ML/MIN
[2021-10-06] MEDS: heparin, porcine 5000 units/ml vial SQ SCH ×2 (11:45→19:08)
[2021-10-06] MEDS: lansoprazole 15mg solutab OGT SCH (11:46)
[2021-10-06] MEDS: lactobacillus rhamnosus 10,000 MMU CELLS/CAPSULE OGT SCH ×2 (11:46→19:07)
[2021-10-06] MEDS: lithium carbonate 150mg capsule PO SCH ×2 (11:46→19:07)
[2021-10-06] MEDS: FLUoxetine 20mg capsule PO SCH ×2 (11:47→19:07)
--- NOTE | 2021-10-06 15:33 | NUR ---
PAGE SENT PAGER ID: [phone] MESSAGE: [id number], JOB SCHULER, NO A1C, PT HASN'T MET DIABETIC PROTOCOL FOR INSULIN. MAY WE DISCONTINUE THE ACCUCHECKS? THANK YOU. JORGE [phone]
--- NOTE | 2021-10-06 15:34 | NUR ---
RECEIVED ORDERS FROM DR. MEZA TO ISREAL NICHOLSON
[2021-10-06 18:00] VITALS: BP 121/67
--- NOTE | 2021-10-06 18:35 | NUR ---
Problems reprioritized. Patient report given, questions answered & plan of care reviewed with JUAN GALLO.
[2021-10-06 22:00] VITALS: BP 119/62
[2021-10-07] MEDS: sodium chloride 0.45% 1,000 ML IV SCH (01:29)
[2021-10-07 02:00] VITALS: BP 109/61
[2021-10-07] MEDS: nystatin 500,000 unit/5ML UD oral suspension OGT SCH ×3 (05:17→12:35)
[2021-10-07 06:11] LABS: BASOPHILS % (AUTO) 0.4 % (0-1); EOSINOPHILS # (AUTO) 0.4 X10'3 (0-0.9); EOSINOPHILS % (AUTO) 3.8 % (0-6); HEMATOCRIT 25.5 % (42.0-52.0); HEMOGLOBIN 9.1 g/dl (14.0-17.9); LYMPHOCYTES % (AUTO) 9.7 % (21-51); MEAN CORPUSCULAR HEMOGLOBIN 32.5 PG (27.0-31.0); MEAN CORPUSCULAR HGB CONC 35.7 g/dL (33.0-36.5); MEAN CORPUSCULAR VOLUME 91.1 FL (78-98); MEAN PLATELET VOLUME 7.8 FL (7.4-10.4); MONOCYTES # (AUTO) 1.2 X10'3 (0-0.9); MONOCYTES % (AUTO) 11.8 % (2-12); NEUTROPHILS # (AUTO) 7.6 X10'3 (1.8-7.7); NEUTROPHILS % (AUTO) 74.3 % (42-75); PLATELET COUNT 348 X10'3 (140-440); RED CELL DISTRIBUTION WIDTH 13.2 % (11.5-14.5); WHITE BLOOD COUNT 10.2 X10'3 (4.5-11.0)
[2021-10-07 06:34] LABS: ALANINE AMINOTRANSFERASE 33 U/L (12-78); ALBUMIN/GLOBULIN RATIO 0.5 (1.1-1.5); ALKALINE PHOSPHATASE 77 IU/L (46-116); ANION GAP 13 (8-16); ASPARTATE AMINO TRANSFERASE 27 U/L (10-37); BILIRUBIN,TOTAL 0.5 MG/DL (0.1-1.0); BLOOD UREA NITROGEN 14 MG/DL (7-18); BUN/CREATININE RATIO 14.3 (5.4-32.0); CALCIUM 7.7 MG/DL (8.5-10.1); CHLORIDE 109 MMOL/L (99-107); CREATININE 0.98 MG/DL (0.60-1.10); GLUCOSE 95 MG/DL (70-104); POTASSIUM 3.3 MMOL/L (3.5-5.1); SODIUM 142 MMOL/L (135-145); TOTAL CARBON DIOXIDE 20.2 MMOL/L (24-32); eGFR 78 ML/MIN
--- NOTE | 2021-10-07 06:34 | NUR ---
Problems reprioritized. Patient report given, questions answered & plan of care reviewed with JUAN Kulkarni.
--- NOTE | 2021-10-07 06:48 | NUR ---
Patient in room PCU 3025. I have received report from JUAN GALLO, and had the opportunity to ask questions and assume patient care.
[2021-10-07] MEDS: docusate sodium 100mg/10ml UD cup OGT SCH ×2 (08:00→19:43)
[2021-10-07] MEDS: K, MAG and/or Phos replacement - Verify level? MC SCH (08:00)
[2021-10-07] MEDS: heparin, porcine 5000 units/ml vial SQ SCH ×2 (08:56→19:43)
[2021-10-07] MEDS: CefTRIAXone/D5W-Rocephin 1gm 50 ML IV SCH (08:56)
[2021-10-07] MEDS: lactobacillus rhamnosus 10,000 MMU CELLS/CAPSULE OGT SCH ×2 (08:57→19:42)
[2021-10-07] MEDS: FLUoxetine 20mg capsule PO SCH ×2 (08:57→19:42)
[2021-10-07] MEDS: lansoprazole 15mg solutab OGT SCH (08:57)
[2021-10-07] MEDS: lithium carbonate 150mg capsule PO SCH ×2 (08:57→19:43)
--- NOTE | 2021-10-07 09:08 | NUR ---
PAGE SENT PAGER ID: [phone] MESSAGE: [id number], CESAR SCHULER, PT IS EATING, MAY WE GET PO POTASSIUM? THANK YOU. JORGE, [phone]
[2021-10-07 11:00] VITALS: BP 104/59
[2021-10-07] MEDS ORDERED: potassium Cl 20 mEq SR tablet PO PRN (12:05)
[2021-10-07] MEDS: potassium Cl 20 mEq SR tablet PO PRN ×3 (12:36→19:42)
[2021-10-07 15:00] VITALS: BP 103/56
--- NOTE | 2021-10-07 15:16 | NUR ---
PAGE SENT PAGER ID: [phone] MESSAGE: [id number], CESAR SCHULER, MAY WE DISCONTINUE BRUNER CATH? THANK YOU, JORGE Beasley [phone]
--- NOTE | 2021-10-07 16:26 | NUR ---
BRUNER CATH REMOVED PER
[2021-10-07 18:00] VITALS: BP 104/57
--- NOTE | 2021-10-07 18:39 | NUR ---
Problems reprioritized. Patient report given, questions answered & plan of care reviewed with JUAN GALLO.
[2021-10-07 22:00] VITALS: BP 99/56
[2021-10-08 02:00] VITALS: BP 96/50
[2021-10-08] MEDS: nystatin 500,000 unit/5ML UD oral suspension OGT SCH ×4 (04:58→20:29)
[2021-10-08] MEDS: sodium chloride 0.45% 1,000 ML IV SCH ×3 (04:59→23:47)
[2021-10-08 06:00] VITALS: BP 101/52
--- NOTE | 2021-10-08 06:19 | NUR ---
Problems reprioritized. Patient report given, questions answered & plan of care reviewed with JUAN Peterson.
[2021-10-08 07:31] LABS: BASOPHILS # (AUTO) 0.1 X10'3 (0-0.2); BASOPHILS % (AUTO) 0.9 % (0-1); EOSINOPHILS # (AUTO) 0.4 X10'3 (0-0.9); EOSINOPHILS % (AUTO) 4.9 % (0-6); HEMATOCRIT 26.5 % (42.0-52.0); LYMPHOCYTES # (AUTO) 0.8 X10'3 (1.1-4.8); LYMPHOCYTES % (AUTO) 9.2 % (21-51); MEAN CORPUSCULAR HEMOGLOBIN 31.7 PG (27.0-31.0); MEAN CORPUSCULAR HGB CONC 34.1 g/dL (33.0-36.5); MEAN CORPUSCULAR VOLUME 92.9 FL (78-98); MEAN PLATELET VOLUME 7.9 FL (7.4-10.4); MONOCYTES # (AUTO) 1.1 X10'3 (0-0.9); MONOCYTES % (AUTO) 13.5 % (2-12); NEUTROPHILS % (AUTO) 71.5 % (42-75); PLATELET COUNT 333 X10'3 (140-440); RED BLOOD COUNT 2.85 X10'6 (4.70-6.10); RED CELL DISTRIBUTION WIDTH 13.4 % (11.5-14.5); WHITE BLOOD COUNT 8.4 X10'3 (4.5-11.0)
[2021-10-08 07:49] LABS: GLUCOSE 97 MG/DL (70-104); SODIUM 141 MMOL/L (135-145)
[2021-10-08 07:50] LABS: ALANINE AMINOTRANSFERASE 42 U/L (12-78); ALBUMIN/GLOBULIN RATIO 0.5 (1.1-1.5); ALKALINE PHOSPHATASE 72 IU/L (46-116); ANION GAP 11 (8-16); ASPARTATE AMINO TRANSFERASE 30 U/L (10-37); BILIRUBIN,TOTAL 0.4 MG/DL (0.1-1.0); BLOOD UREA NITROGEN 14 MG/DL (7-18); BUN/CREATININE RATIO 15.7 (5.4-32.0); CHLORIDE 110 MMOL/L (99-107); CREATININE 0.89 MG/DL (0.60-1.10); POTASSIUM 3.9 MMOL/L (3.5-5.1); TOTAL CARBON DIOXIDE 19.7 MMOL/L (24-32); eGFR 87 ML/MIN
[2021-10-08] MEDS: K, MAG and/or Phos replacement - Verify level? MC SCH (08:00)
[2021-10-08] MEDS: docusate sodium 100mg/10ml UD cup OGT SCH ×2 (08:00→22:14)
[2021-10-08] MEDS: CefTRIAXone/D5W-Rocephin 1gm 50 ML IV SCH (08:53)
[2021-10-08] MEDS: FLUoxetine 20mg capsule PO SCH ×2 (08:54→20:29)
[2021-10-08] MEDS: lithium carbonate 150mg capsule PO SCH ×2 (08:54→20:30)
[2021-10-08] MEDS: lansoprazole 15mg solutab OGT SCH (08:54)
[2021-10-08] MEDS: lactobacillus rhamnosus 10,000 MMU CELLS/CAPSULE OGT SCH ×2 (08:54→20:29)
[2021-10-08] MEDS: heparin, porcine 5000 units/ml vial SQ SCH (08:55)
--- NOTE | 2021-10-08 10:23 | NUR ---
Paged Dr. Thompson regarding cough suppressant. PAGER ID: [phone] MESSAGE: [phone] [place]. Patient has had a cough since last night, non productive, can we have an order for a cough suppressant (Robitussin) and lozenge? Sylwia [facility] [phone].
[2021-10-08 11:00] VITALS: BP 96/55
[2021-10-08 12:54] LABS: D-DIMER > 35.20 MG/L FEU (0-0.50)
--- NOTE | 2021-10-08 14:50 | NUR ---
Paged Dr. Thompson regarding D dimer of 35. PAGER ID: [phone] MESSAGE: [id number] [place]. D Dimer you requested has resulted 35.20 Sylwia SALCEDO
[2021-10-08] MEDS ORDERED: iohexol 350MG/ML 100ml bottle IV ONE (15:12)
[2021-10-08 18:00] VITALS: BP 96/51
[2021-10-08] MEDS ORDERED: heparin 10,000 units/1 ML INJ IV ONE (19:30)
[2021-10-08] MEDS: traZODone 50mg tablet OGT PRN (20:30)
[2021-10-08] MEDS: heparin 25,000 UNIT/250ml bag 250 ML IV SCH (21:46)
[2021-10-08 22:00] VITALS: BP 91/46
[2021-10-09 02:00] VITALS: BP 98/60
--- NOTE | 2021-10-09 02:37 | NUR ---
CTA come back positive to PE new order for heparin drip no signs of bleeding noted will continue to monitor and report changes
[2021-10-09 06:00] VITALS: BP 98/60
[2021-10-09 06:20] LABS: BASOPHILS # (AUTO) 0.1 X10'3 (0-0.2); BASOPHILS % (AUTO) 0.6 % (0-1); EOSINOPHILS # (AUTO) 0.4 X10'3 (0-0.9); EOSINOPHILS % (AUTO) 4.6 % (0-6); HEMATOCRIT 26.4 % (42.0-52.0); HEMOGLOBIN 9.2 g/dl (14.0-17.9); LYMPHOCYTES # (AUTO) 1.1 X10'3 (1.1-4.8); LYMPHOCYTES % (AUTO) 12.5 % (21-51); MEAN CORPUSCULAR HGB CONC 34.9 g/dL (33.0-36.5); MEAN CORPUSCULAR VOLUME 91.7 FL (78-98); MEAN PLATELET VOLUME 7.7 FL (7.4-10.4); MONOCYTES # (AUTO) 1.1 X10'3 (0-0.9); MONOCYTES % (AUTO) 12.6 % (2-12); NEUTROPHILS # (AUTO) 5.9 X10'3 (1.8-7.7); NEUTROPHILS % (AUTO) 69.7 % (42-75); PLATELET COUNT 364 X10'3 (140-440); RED BLOOD COUNT 2.88 X10'6 (4.70-6.10); RED CELL DISTRIBUTION WIDTH 13.5 % (11.5-14.5); WHITE BLOOD COUNT 8.4 X10'3 (4.5-11.0)
--- NOTE | 2021-10-09 06:39 | NUR ---
Problems reprioritized. Patient report given, questions answered & plan of care reviewed with Kristen MARTINEZ .
[2021-10-09] MEDS: docusate sodium 100mg/10ml UD cup OGT SCH ×2 (08:00→19:50)
[2021-10-09] MEDS: K, MAG and/or Phos replacement - Verify level? MC SCH (08:00)
[2021-10-09] MEDS: lansoprazole 15mg solutab OGT SCH (08:36)
[2021-10-09] MEDS: lactobacillus rhamnosus 10,000 MMU CELLS/CAPSULE OGT SCH ×2 (08:36→19:49)
[2021-10-09] MEDS: CefTRIAXone/D5W-Rocephin 1gm 50 ML IV SCH (08:36)
[2021-10-09] MEDS: lithium carbonate 150mg capsule PO SCH ×2 (08:36→19:50)
[2021-10-09] MEDS: nystatin 500,000 unit/5ML UD oral suspension OGT SCH ×3 (08:36→22:33)
[2021-10-09] MEDS: FLUoxetine 20mg capsule PO SCH ×2 (08:36→19:50)
[2021-10-09] MEDS: heparin 10,000 units/1 ML INJ IV PRN (08:39)
[2021-10-09] MEDS: sodium chloride 0.45% 1,000 ML IV SCH (12:08)
--- NOTE | 2021-10-09 13:29 | NUR ---
page regarding med PAGER ID: [phone] MESSAGE: room 3023B [place], patient has nystatin oral suspension 5mL OGT BID. patient does not have an OG tube any longer and is tolerating PO meds and food/drink. Is this medication still indicated or can I DC it? Thank you, Kristen MARTINEZ
--- NOTE | 2021-10-09 13:46 | NUR ---
Reassessment: Patient's PO diet has been advanced to vegetarian mechanical soft chopped and TF discontinued per EMR. Pt initially roughly averaging 25-50% PO intake though PO intake is improving with 75% PO intake at lunch and dinner 10/08 up to 75-100% PO intake at breakfast this morning. LBM 10/07, with routine bowel care available though pt refuses at times per EMR. No nutrition intervention implemented at this time given recent improvement in PO intake. Will continue to follow. Recommendations: 1) Continue mechanical soft chopped vegetarian diet; advance as medically indicated 2) Routine bowel care 3) Weekly scaled weights Addendum: 10/09/21 at [address] Amended: Links added.
[2021-10-09 15:00] VITALS: BP 91/49
[2021-10-09 18:00] VITALS: BP 107/62
[2021-10-09] MEDS: traZODone 50mg tablet OGT PRN (19:49)
[2021-10-09 22:00] VITALS: BP 102/50
[2021-10-09] MEDS: heparin 25,000 UNIT/250ml bag 250 ML IV SCH (22:00)
[2021-10-10 02:00] VITALS: BP 99/57
[2021-10-10 02:44] LABS: BASOPHILS # (AUTO) 0.1 X10'3 (0-0.2); BASOPHILS % (AUTO) 1.4 % (0-1); EOSINOPHILS # (AUTO) 0.3 X10'3 (0-0.9); EOSINOPHILS % (AUTO) 4.3 % (0-6); HEMATOCRIT 25.4 % (42.0-52.0); HEMOGLOBIN 8.8 g/dl (14.0-17.9); LYMPHOCYTES # (AUTO) 1.3 X10'3 (1.1-4.8); LYMPHOCYTES % (AUTO) 19.6 % (21-51); MEAN CORPUSCULAR HEMOGLOBIN 31.9 PG (27.0-31.0); MEAN CORPUSCULAR HGB CONC 34.7 g/dL (33.0-36.5); MEAN CORPUSCULAR VOLUME 91.7 FL (78-98); MEAN PLATELET VOLUME 7.5 FL (7.4-10.4); MONOCYTES # (AUTO) 0.9 X10'3 (0-0.9); MONOCYTES % (AUTO) 13.6 % (2-12); NEUTROPHILS # (AUTO) 4.2 X10'3 (1.8-7.7); NEUTROPHILS % (AUTO) 61.1 % (42-75); PLATELET COUNT 358 X10'3 (140-440); RED BLOOD COUNT 2.77 X10'6 (4.70-6.10); WHITE BLOOD COUNT 6.9 X10'3 (4.5-11.0)
[2021-10-10] MEDS: sodium chloride 0.45% 1,000 ML IV SCH ×2 (04:04→18:33)
[2021-10-10] MEDS: heparin 10,000 units/1 ML INJ IV PRN (04:06)
--- NOTE | 2021-10-10 05:26 | NUR ---
Patient continue on Heparin drip for PE adjusted according to protocols,no signs of bleeding noted at this time will continue to monitor and report changes
--- NOTE | 2021-10-10 06:35 | NUR ---
Problems reprioritized. Patient report given, questions answered & plan of care reviewed with Imeda RN .
--- NOTE | 2021-10-10 06:51 | NUR ---
Received report Bertram/Alberta MARTINEZ. Addendum: 10/10/21 at 0653 by Elvi Awad RN received report from Christy MARTINEZ traveler.
[2021-10-10 07:13] VITALS: BP 99/59
[2021-10-10] MEDS: K, MAG and/or Phos replacement - Verify level? MC SCH (08:00)
[2021-10-10] MEDS: docusate sodium 100mg/10ml UD cup OGT SCH ×2 (08:00→20:00)
[2021-10-10] MEDS: FLUoxetine 20mg capsule PO SCH ×2 (08:48→20:41)
[2021-10-10] MEDS: lactobacillus rhamnosus 10,000 MMU CELLS/CAPSULE OGT SCH ×2 (08:48→20:42)
[2021-10-10] MEDS: lansoprazole 15mg solutab OGT SCH (08:49)
[2021-10-10] MEDS: lithium carbonate 150mg capsule PO SCH ×2 (08:49→20:41)
[2021-10-10] MEDS: nystatin 500,000 unit/5ML UD oral suspension OGT SCH ×3 (08:52→20:41)
[2021-10-10] MEDS: CefTRIAXone/D5W-Rocephin 1gm 50 ML IV SCH (09:02)
[2021-10-10 13:27] VITALS: BP 94/52
[2021-10-10 16:57] VITALS: BP 141/89
[2021-10-10 18:00] VITALS: BP 100/56
--- NOTE | 2021-10-10 18:15 | NUR ---
Problems reprioritized. Patient report given, questions answered & plan of care reviewed with Kalen MARTINEZ.
--- NOTE | 2021-10-10 18:48 | NUR ---
Patient in room PCU 3023. I have received report from Elvi MARTINEZ and had the opportunity to ask questions and assume patient care.
--- NOTE | 2021-10-10 19:41 | NUR ---
Patient in room PCU 3023. I have received report from DEBORA MARTINEZ and had the opportunity to ask questions and assume patient care.
[2021-10-10] MEDS: apixaban 5mg tablet PO SCH (20:42)
[2021-10-10 22:00] VITALS: BP 96/55
[2021-10-11 02:00] VITALS: BP 107/57
[2021-10-11] MEDS: sodium chloride 0.45% 1,000 ML IV SCH ×2 (02:05→10:10)
[2021-10-11 06:00] VITALS: BP 90/48
--- NOTE | 2021-10-11 06:00 | NUR ---
Patient in room PCU 3023. I have received report from JUAN Gonzalez and JUAN Mccrary and had the opportunity to ask questions and assume patient care.
--- NOTE | 2021-10-11 06:16 | NUR ---
Problems reprioritized. Patient report given, questions answered & plan of care reviewed with Jeanie MARTINEZ.
--- NOTE | 2021-10-11 07:14 | NUR ---
Received patient report from Demetra MARTINEZ patient resting on back awake and alert.
[2021-10-11 08:00] LABS: BASOPHILS % (AUTO) 0.7 % (0-1); EOSINOPHILS # (AUTO) 0.3 X10'3 (0-0.9); EOSINOPHILS % (AUTO) 3.6 % (0-6); HEMOGLOBIN 9.4 g/dl (14.0-17.9); LYMPHOCYTES # (AUTO) 1.1 X10'3 (1.1-4.8); LYMPHOCYTES % (AUTO) 15.3 % (21-51); MEAN CORPUSCULAR HEMOGLOBIN 31.7 PG (27.0-31.0); MEAN CORPUSCULAR HGB CONC 34.8 g/dL (33.0-36.5); MEAN CORPUSCULAR VOLUME 90.9 FL (78-98); MEAN PLATELET VOLUME 7.6 FL (7.4-10.4); MONOCYTES # (AUTO) 0.8 X10'3 (0-0.9); MONOCYTES % (AUTO) 11.1 % (2-12); NEUTROPHILS # (AUTO) 4.9 X10'3 (1.8-7.7); NEUTROPHILS % (AUTO) 69.3 % (42-75); PLATELET COUNT 376 X10'3 (140-440); RED BLOOD COUNT 2.97 X10'6 (4.70-6.10); RED CELL DISTRIBUTION WIDTH 13.4 % (11.5-14.5)
[2021-10-11] MEDS: docusate sodium 100mg/10ml UD cup OGT SCH ×4 (08:00→20:54)
[2021-10-11] MEDS: K, MAG and/or Phos replacement - Verify level? MC SCH (08:00)
[2021-10-11] MEDS: lactobacillus rhamnosus 10,000 MMU CELLS/CAPSULE OGT SCH ×2 (10:04→20:54)
[2021-10-11] MEDS: lansoprazole 15mg solutab OGT SCH (10:05)
[2021-10-11] MEDS: apixaban 5mg tablet PO SCH ×2 (10:06→20:55)
[2021-10-11] MEDS: lithium carbonate 150mg capsule PO SCH ×2 (10:07→20:54)
[2021-10-11] MEDS: FLUoxetine 20mg capsule PO SCH ×2 (10:08→20:55)
[2021-10-11] MEDS: nystatin 500,000 unit/5ML UD oral suspension OGT SCH ×3 (10:08→20:55)
[2021-10-11] MEDS: CefTRIAXone/D5W-Rocephin 1gm 50 ML IV SCH (10:08)
[2021-10-11 11:00] VITALS: BP 98/61
--- NOTE | 2021-10-11 16:10 | NUR ---
[facility] in with patient and spouse at this time.
--- NOTE | 2021-10-11 16:27 | NUR ---
PAGER ID: [phone] MESSAGE: Jeanie Archibald [phone] Re: Etienne [phone] Elke with [facility] is here to speak with you please call Addendum: 10/11/21 at 6023 by Jeanie Marte RN Dr Abreu given the phone number for Elke with [facility] in the ER.[phone].
[2021-10-11 18:00] VITALS: BP 90/50
--- NOTE | 2021-10-11 18:40 | NUR ---
Problems reprioritized. Patient report given, questions answered & plan of care reviewed with Katharine Alcantar RN.
--- NOTE | 2021-10-11 18:45 | NUR ---
Patient in room PCU 3023. I have received report from PENELOPE MARTINEZ and had the opportunity to ask questions and assume patient care.
[2021-10-11 22:00] VITALS: BP 96/58
[2021-10-12 02:00] VITALS: BP 88/58
[2021-10-12 06:00] VITALS: BP 99/59
--- NOTE | 2021-10-12 06:30 | NUR ---
Patient in room PCU 3023. I have received report from Katharine Alcantar RN and had the opportunity to ask questions and assume patient care.
--- NOTE | 2021-10-12 06:30 | NUR ---
Problems reprioritized. Patient report given, questions answered & plan of care reviewed with MARIA EUGENIA MARTINEZ.
[2021-10-12 06:54] LABS: BASOPHILS # (AUTO) 0.1 X10'3 (0-0.2); BASOPHILS % (AUTO) 0.9 % (0-1); EOSINOPHILS # (AUTO) 0.2 X10'3 (0-0.9); HEMATOCRIT 29.9 % (42.0-52.0); HEMOGLOBIN 10.3 g/dl (14.0-17.9); LYMPHOCYTES # (AUTO) 1.2 X10'3 (1.1-4.8); LYMPHOCYTES % (AUTO) 15.3 % (21-51); MEAN CORPUSCULAR HEMOGLOBIN 30.7 PG (27.0-31.0); MEAN CORPUSCULAR HGB CONC 34.4 g/dL (33.0-36.5); MEAN CORPUSCULAR VOLUME 89.3 FL (78-98); MEAN PLATELET VOLUME 7.6 FL (7.4-10.4); MONOCYTES # (AUTO) 0.9 X10'3 (0-0.9); MONOCYTES % (AUTO) 11.8 % (2-12); NEUTROPHILS # (AUTO) 5.2 X10'3 (1.8-7.7); PLATELET COUNT 455 X10'3 (140-440); RED BLOOD COUNT 3.35 X10'6 (4.70-6.10); RED CELL DISTRIBUTION WIDTH 13.2 % (11.5-14.5); WHITE BLOOD COUNT 7.6 X10'3 (4.5-11.0)
[2021-10-12] MEDS: K, MAG and/or Phos replacement - Verify level? MC SCH (08:00)
[2021-10-12] MEDS: docusate sodium 100mg/10ml UD cup OGT SCH (08:00)
[2021-10-12 08:13] LABS: ALANINE AMINOTRANSFERASE 37 U/L (12-78); ALBUMIN 2.5 G/DL (3.4-5.0); ALBUMIN/GLOBULIN RATIO 0.6 (1.1-1.5); ALKALINE PHOSPHATASE 81 IU/L (46-116); ANION GAP 11 (8-16); ASPARTATE AMINO TRANSFERASE 23 U/L (10-37); BILIRUBIN,TOTAL 0.3 MG/DL (0.1-1.0); BLOOD UREA NITROGEN 15 MG/DL (7-18); BUN/CREATININE RATIO 15.5 (5.4-32.0); CALCIUM 8.4 MG/DL (8.5-10.1); CHLORIDE 108 MMOL/L (99-107); CREATININE 0.97 MG/DL (0.60-1.10); GLUCOSE 100 MG/DL (70-104); SODIUM 141 MMOL/L (135-145); TOTAL CARBON DIOXIDE 22.3 MMOL/L (24-32); TOTAL PROTEIN 6.9 G/DL (6.4-8.2); eGFR 79 ML/MIN
[2021-10-12] MEDS: FLUoxetine 20mg capsule PO SCH (08:48)
[2021-10-12] MEDS: lactobacillus rhamnosus 10,000 MMU CELLS/CAPSULE OGT SCH (08:48)
[2021-10-12] MEDS: apixaban 5mg tablet PO SCH (08:48)
[2021-10-12] MEDS: lithium carbonate 150mg capsule PO SCH (08:49)
[2021-10-12] MEDS: nystatin 500,000 unit/5ML UD oral suspension OGT SCH (08:49)
[2021-10-12] MEDS: lansoprazole 15mg solutab OGT SCH (08:57)
[2021-10-12] MEDS ORDERED: APIX5TAB3 PO (09:59)
[2021-10-12] MEDS ORDERED: BENZ-38 PO (10:28)
[2021-10-12 11:00] VITALS: BP 106/72
--- NOTE | 2021-10-12 12:00 | NUR ---
Pt DC'd home with . Pt alert and oriented and vitals WNL upon DC. Per Dr. Abreu; Pt is stable for DC. PICC line removed, canula intact. Tele-box removed and returned to tele-tech. DC paperwork printed out and gone over with Pt and . Allowed both Pt and to ask questions concerning DC and then answered them. New prescriptions called into [facility] pharmacy in [facility]. Pt and stated that they have afollow up appt with both their PCP and therapist. Pt's belongings gathered and sent with Pt. Pt wheeled down to lobby via wheelchair and left in private vehicle for home.
[2021-10-12] MEDS ORDERED: LEVO500T90 PO (13:22)
[2021-10-17] MEDS ORDERED: apixaban 5mg tablet PO SCH (20:00)
== END 2021-10-12 12:00 | disposition home or self-care (01) | DRG 917 ==
LOC: ER 04:50 → ED HOLD 12:10 → ICU 2S 13:32 → PCU 3S 10-04 16:41
PROVIDERS: ADMIT Surgery Surgical Critical Care; ATTEND Surgery Surgical Critical Care
PROC: 5A0935A Assistance with Respiratory Ventilation, Less than 24 Consecutive Hours, High Flow/Velocity Cannula (ICD-10-PCS; principal; 2021-09-21)
PROC: 0BH17EZ Insertion of Endotracheal Airway into Trachea, Via Natural or Artificial Opening (ICD-10-PCS; 2021-09-21)
PROC: 5A1955Z Respiratory Ventilation, Greater than 96 Consecutive Hours (ICD-10-PCS; 2021-09-21)
PROC: 06HY33Z Insertion of Infusion Device into Lower Vein, Percutaneous Approach (ICD-10-PCS; 2021-09-21)
PROC: B54BZZA Ultrasonography of Right Lower Extremity Veins, Guidance (ICD-10-PCS; 2021-09-21)
PROC: 04HY32Z Insertion of Monitoring Device into Lower Artery, Percutaneous Approach (ICD-10-PCS; 2021-09-21)
PROC: B32T1ZZ Computerized Tomography (CT Scan) of Left Pulmonary Artery using Low Osmolar Contrast (ICD-10-PCS; 2021-09-21)
PROC: B3201ZZ Computerized Tomography (CT Scan) of Thoracic Aorta using Low Osmolar Contrast (ICD-10-PCS; 2021-09-21)
PROC: B32S1ZZ Computerized Tomography (CT Scan) of Right Pulmonary Artery using Low Osmolar Contrast (ICD-10-PCS; 2021-09-21)
PROC: 02HV33Z Insertion of Infusion Device into Superior Vena Cava, Percutaneous Approach (ICD-10-PCS; 2021-09-30)
PROC: B548ZZA Ultrasonography of Superior Vena Cava, Guidance (ICD-10-PCS; 2021-09-30)
PROC: 5A0955A Assistance with Respiratory Ventilation, Greater than 96 Consecutive Hours, High Flow/Velocity Cannula (ICD-10-PCS; 2021-10-01)
DX: T43.212A Poisoning by selective serotonin and norepinephrine reuptake inhibitors, intentional self-harm, initial encounter (principal); J96.01 Acute respiratory failure with hypoxia; J96.02 Acute respiratory failure with hypercapnia; J69.0 Pneumonitis due to inhalation of food and vomit; I46.9 Cardiac arrest, cause unspecified; I26.99 Other pulmonary embolism without acute cor pulmonale; N17.9 Acute kidney failure, unspecified; F32.A Depression, unspecified; Z20.822 Contact with and (suspected) exposure to COVID-19; I95.9 Hypotension, unspecified; E87.6 Hypokalemia; R21 Rash and other nonspecific skin eruption; R62.7 Adult failure to thrive; D64.9 Anemia, unspecified; I10 Essential (primary) hypertension; Y92.89 Other specified places as the place of occurrence of the external cause; Z78.1 Physical restraint status; Z68.24 Body mass index [BMI] 24.0-24.9, adult
CPT/HCPCS: 31500; 36415; 36556; 36573; 36600; 70450; 71045; 71250; 71275; 74018; 74176; 80053; 80202; 80305; 80320; 80329; 81001; 82140; 82550; 82803; 82948; 83605; 83735; 84100; 84132; 84134; 84145; 84484; 85018; 85025; 85379; 85610; 85730; 87040; 87070; 87077; 87081; 87088; 87186; 87635; 92508; 92616; 93005; 94002; 94003; 94640; 94760; 94799; 96360; 96361; 97110; 97116; 97161; 97530; 99291; C9113; C9803; G0378; J0131; J0696; J1644; J1940; J2060; J2270; J2405; J2543; J2765; J3010; J3370; J3480; J3490; J7030; J7060; P9045; Q0163; Q9967